=== PATIENT | male | born 1980 | race Caucasian/White ===

== ENCOUNTER 2024-05-28 09:03 | Outpatient (AMB) | payer MEDICARE, SELFPAY ==
--- NOTE | 2024-05-28 10:18 | PD.RESCLINIC ---
Allergies/Meds Allergies & Medications Allergies No Known Allergies Allergy (Verified 05/28/24 17:13) Medication Reconciliation flash glucose scanning reader (FreeStyle Zeyad 2 [place]) #1 ea 12/07/21 [Rx Confirmed 02/27/24] flash glucose sensor (FreeStyle Zeyad 2 Sensor kit) #1 ea 12/07/21 [Rx Confirmed 02/27/24] flash glucose sensor (FreeStyle Zeyad 2 Sensor kit) #1 ea 01/11/22 [Rx Confirmed 02/27/24] flash glucose sensor (FreeStyle Zeyad 14 Day Sensor kit) #6 ea 08/10/22 [Rx Confirmed 02/27/24] flash glucose sensor (FreeStyle Zeyad 2 Sensor kit) #1 ea 10/18/22 [Rx Confirmed 02/27/24] insulin glargine 100 unit/mL (3 mL) subcutaneous pen 25 unit (0.25 mL) subcut QDAY #15 mL 10/18/22 [Rx Confirmed 02/27/24] ondansetron 4 mg disintegrating tablet 4 mg PO Q8H #20 tabs 02/13/23 [Rx Confirmed 02/27/24] blood-glucose sensor (FreeStyle Zeyad 3 Sensor device) #2 ea 09/12/23 [Rx Confirmed 02/27/24] insulin degludec 100 unit/mL (3 mL) subcutaneous pen (Tresiba FlexTouch U-100 insulin) 25 unit (0.25 mL) subcut QDAY #15 mL 09/12/23 [Rx Confirmed 02/27/24] insulin glargine U-300 conc 300 unit/mL (3 mL) subcutaneous pen (Toujeo Max U-300 SoloStar) 22 unit (0.0733 mL) subcut QDAY #6 mL 10/31/23 [Rx Confirmed 02/27/24] pen needle, diabetic 31 gauge x 3/16 (Advocate Pen Needle) #100 ea 10/31/23 [Rx Confirmed 02/27/24] insulin lispro 100 unit/mL subcutaneous solution (Humalog U-100 Insulin) 1 sliding scale dose subcut USEASDIRECTD DM #9 vials 02/27/24 [Rx] albuterol sulfate 90 mcg/actuation aerosol inhaler 2 puff inhalation Q6H PRN shortness of breath or wheezing #8.5 grams 05/28/24 [Rx Confirmed 05/28/24] mometasone-formoterol HFA 50 mcg-5 mcg/actuation aerosol inhaler (Dulera) 2 inh inhalation BID asthma #13 grams 05/28/24 [Rx Confirmed 05/28/24] MA Intake Visit Data Collection New Patient or Established: Established Patient (seen at [facility] within 3 years) Seen by Clinical Staff ONLY (RN/MA): No Pain Present Currently: No Pain Scale Used: Tamayo-Onofre/Numerical Inspector Tubes Required: No PCP or OBGYN visit in last 3 months: Yes Hx Now: No Do You Feel Safe at Home: Yes Authorities Contacted: N/A Smoking Status Smoking Status: Never smoker For Televisit only Telemed Video/Phone Visit: Yes Verbal consent obtained for Telemed visit?: Yes Verbal Consent witness name: terrance Telemed Video/Phone visit w/Clinical Staff: 21-30 min Immunization / Flu Flu Vaccine in the Last 12 Months: No Flu Vaccine Exclusion Criteria: No Exclusion Criteria Past Medical History Past Medical History NEUROLOGIC: Negative Neurological Disorders CARDIAC: Negative Cardiac Disorders, Congestive Heart Failure or Hypotension RESPIRATORY: Negative Chronic Obstructive Pulmonary Disease (COPD) GASTROINTESTINAL: Positive Gastrointestinal Disorders and Pancreatitis GENITOURINARY: Negative Genitourinary Disorders or Renal Disease MUSCULOSKELETAL: Positive Arthritis ENDOCRINE: Positive Endocrine Disorders; Negative Diabetes Mellitus Type 1 or Diabetes Mellitus Type 2 HEMATOLOGIC: Negative Blood Disorders OTHER HISTORY: Positive Chicken Pox, Measles and Mumps Surgical History SURGICAL: Negative Cardiac Surgery Social History SMOKING STATUS: Smoking status: Never smoker ALCOHOL: Alcohol Intake: Never HOUSING: Housing: House LIVES WITH: Lives With: Significant Other Patient Portal [employer] Social History Living Situation History Housing: House Tobacco History Smoking Status: Never smoker Alcohol History Alcohol Intake: Never Domestic Abuse History Do You Feel Safe at Home: Yes Review of Systems Report any current symptoms Only answer those that you have currently: Past Medical History Past Medical History Have you ever been diagnosed with any of the following: Cardiology Problems Congestive Heart Failure: No Hypotension: No Respiratory Problems Chronic Obstructive Pulmonary Disease (COPD): No Stomache/Intestinal Problems Pancreatitis: Yes Genital/Urinary Problems Renal Disease: No Musculoskeletal Problems Arthritis: Yes Endocrine Problems Diabetes Mellitus Type 1: No Diabetes Mellitus Type 2: No Other Problems Chicken Pox: Yes Measles: Yes Mumps: Yes History of Present Illness HPI Narrative 42 year old male with past medical history of eczema, IBS, HLD and DKA. DM management includes Tresiba 20 units QD, metformin 500 mg BID, lispro sliding scale for continued diabetic management.? 01/11/2022 Previous appointment had patient prescribed Lantus for Tresiba due to cost of Tresiba.? Patient has been adequately controlling blood sugars.? Per his freestyle zeyad 2 his glucose management has been approximately 157 average with 94% compliance in the ideal blood glucose range.? Discussed with patient he would continue to need to have simple carbohydrate and sugar snacks with him if episodes of hypoglycemia occur when working in hot weather.? Patient stated that he has had some diarrhea/loose stools while on metformin.? Discussed with patient that this would continue to resolve moving forward.? However, have fit and we can consider extended release metformin.? Patient was concerned also for an rash that he had on his lower back extending into his gluteal line.? Patient has history of eczema and patient stated that his triamcinolone cream at home was helping the rash until he ran out.? 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 Also discussed with patient that he would need to follow-up with podiatry annually now that he has the diagnosis of his diabetes for preventative maintenance and treatment.? Patient has also been able to gain approximately 3 to 4 kg since last appointment. Patient has done an?EXCELLENT?job of lifestyle change for treatment of his diabetes. 02/08/2022 Patient has been having lower blood sugar numbers that drop into the 50s and 60s during the day at work. Patient saw word processing supervisor who recommended he use compression stalkings. Patient had an accident w/ a nail gun that resulted in a 1.25 nail in his most distal phalanx of the left index finger. Continues to have diarrhea on regular metformin, discussed we would try ER. Discussed that patient would have lantus reduced to 25 daily, receive antifungal for gluteal rash, receive TDAP vaccine, receive prescription for metformin ER, receive prescription for Keflex 500 mg qid, refill of freestyle zeyad 2 sensors. 03/15/2022 Patient continues to have blood sugar lows when at work. He has been using snacks and high sugar content drinks to keep his blood sugar controlled. Discussed he can begin to reduce his Lantus by 1-2 units and see effect over several days to reduce the number of low sugar incidences. Patient presented with paperwork to sign for an insulin pump. Paperwork was signed and patient will make an additional appointment once he receives the pump. Ordered an a1c for outpatient labs. 05/16/2022 Patient's blood sugar continues to fluctuate at work. Patient has gained approximately 2.0-2.5 kg since last visit. Patient was working to get an insulin pump but due to insurance issues was not able to receive one. He has insurance for medications that started on 05/07/2022. Follow up A1C on 03/15/2022 was 6.0%. Patient would like a prescription for Tresiba as he stated his blood sugar control was more stable throughout the day, especially at work. Continues to have GI upset that waxes/wanes with metformin. 10/20/2022 Patient follow-up. Patient is now status post cardiac angiogram. No large vessel occlusions were seen, no most likely angina is related to microvascular changes. Patient continues to have chest pain during sexual intercourse, and throughout the day when working. Patient has learned to compromise by taking short intermittent breaks. Patient overall has been doing well since last visit. Patient continues to monitor his blood sugar daily for his freestyle libre2. Patient also has had associated nausea without vomiting. Discussed with patient we can treat conservatively or more aggressively with PPIs. Patient at this time wanted to treat conservatively and withhold PPIs. Does not improve we will consider PPI along with imaging. Patient has continued to be cardiac. Patient had labs ordered for CMP, CBC, lipid panel. 12/06/2022 Patient follow-up for recent lab work. CMP wnl, A1C 6.7%, and LDL 120. Patient with improvement of chest pain with activity. Patient able to follow up with Project Systems Engineer Yvette who recommended to continue current medical management per patient. Patient compliant with diet and exercise, currently using Freestyle Libre2. Upon inspection of [employer] imtiaz on patient's phone, he is at 0% of the time at <70 blood sugar, 57% at 70-130 blood sugar, and about 14% above 200 blood sugar. Patient did not endorse nausea, fever, chills, chest pain, headache or constipation. He did endorse diarrhea about 5 episodes of water stools daily. Patient with pmh of IBS. Discussed with patient about benefits of statin therapy in patient with DM and +40yo, however, decision was made to proceed with lifestyle/diet changes and initiate fish oil supplements. Patient willing to recheck his lipid panel in 2-3 months and rediscuss statin therapy at that time. 06/06/2023 Follow up for DM. Patient has been having difficulty with finances. Patient continues to see cardiology for follow up. Has had continued cough for the last several months that has caused some chest pain/discomfort. Has been having diffulcty with controlling blood sugar. Morning readings has been 140 to 180 and also above 300 some mornings. Has had a chronic cough for > 3 months that has caused exessive fatigue. Denies fevers but has had chills at night. 07/11/2023 Follow-up for DM. Patient continues to have minor chest pain on exertion. 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 Continues to have difficulty controlling blood sugar. Cough has improved since last visit with antibiotics. Requests refill of long and short acting insulin. Presented with paperwork for insulin pump. Discussed that we will fill out. Also discussed that we would refer him to endocrinology for continued management of insulin pump. 08/15/2023 Follow-up for DM. Patient was seen over telehealth visit. Patient continues to do well on diabetic medication. Patient was updated on the status of endocrinology referral which is currently pending. Patient mentions no other complaints at this time. Patient did request refill for long and short acting insulin. 09/12/2023 Follow up for DM. Hypoglycemic episodes at night. Resending documentation for insulin pump. Refill medications. Continues to have typical chest pain and takes daily aspirin. Has been maintaining weight with a slight increase since July 2023. Endocrinology referral pending. 10/31/2023 Follow up for DM. Does not currently have CGM as his cell phone is not working. Currently has insulin pump. Filled out paperwork for omnipod. Requested refills. Continues to maintain weight. 02/27/2024 Follow up for DM. Currently on insulin pump. BG well managed with current pump. We ordered new 90 day refills through [facility]. Patient also complaining of dry cough and sob, sometimes wheezing. He has a hx of asthma, currently not taking meds. We ordered inhalers as below. Patient interested in following through with OMNIPOD device. Process was started by Dr. Lopez. We've submited a new form through [employer]. Telehealth Annual and f/u DM. Using insulin pump. Attempt for OMNIPODS was rejected by insurance. Glucose reading have been within range. Has been unable to pepper picker his asthma inhalers (we switched pharmacy to [facility]), complaining of daily cough that worsening over the last month or so. Now has productive martinez-green sputum, no fever, no chills, no hemoptesis. 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 Will see patient in 1-2 weeks after her completes labs. Review of Systems Review of Systems Narrative Review of Systems: GENERAL: Denies fevers/chills or diaphoresis. HEENT: Denies headache or visual/hearing changes. Denies nasal discharge. NEURO: Denies unusual weakness or difficulty speaking. CARDIO: Denies chest pain or palpitations. PULM: Denies SOB, coughing, or wheezing. GI: Denies abdominal pain, N/V/C/D/reflux/gas, bright red blood per rectum or melena. Reports having BMs. URO: Denies burning/itching/pain/urinary changes. MSK/EXT/SKIN: Denies joint/skeletal/muscle pain, issues/changes in upper or lower extremities, itchiness, or superficial pain. PSYCH: Cooperative, pleasant mood & affect. The rest of the review of systems is otherwise negative. Assessment & Plan Diagnosis / Problem List (1) Encounter for annual general medical examination with abnormal findings in adult: Status: Acute Assessment & Plan: Planing of productive cough x 1 month with dark martinez/green sputum. No fever or chills. No chest pain or shortness of breath. 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 Used to smoke cigarettes but quit several years ago. Ordered labs and imagings as below. Follow-up in person in 2-3 weeks. Ordered age-appropriate screening tools as below. Ordered annual labs as below Plan: ? Follow-up chest x-ray ? Follow-up labs: CBC, CMP, TSH, A1c, lipid panel, PSA ? Referral to GI for colonoscopy ? Return to office if symptoms persist, worsen or new symptoms develop. ? Follow-up in 2-3 weeks or PRN ? Will revisit vaccines during next visit. (2) Asthma: Status: Acute Qualifiers: Asthma complication type: uncomplicated Asthma persistence: persistent Asthma severity: mild Qualified Code(s): J45.30 - Mild persistent asthma, uncomplicated Assessment & Plan: Was unable to pepper picker his inhaler last time. Complaining of dry cough and wheezing almost on a daily basis. Will refill inhalers. Chest x-ray and labs as above. Plan: ? Refilled ALBUTEROL inhaler. ? Refilled DULERA inhaler. (3) Insulin dependent diabetes mellitus: Status: Acute Assessment & Plan: On INSULIN PUMP. Reports glucose have been in normal range. No reported signs or symptoms of diabetic complications. Plan: ? Ordered INSULIN refills: [facility] [facility] order # [id number] ? Recommended annual eye exam ? Follow-up ordered A1C ? Needs inpatient microfilament test in person Orders: Orders Ambulatory Hemoglobin A1C Today Alfredo Medina MD E13.9 - Other specified diabetes mellitus without complications Bedside Glucose (finger stick) Today Alfredo Medina MD E13.9 - Other specified diabetes mellitus without complications CBC Today Alfredo Medina MD E13.9 - Other specified diabetes mellitus without complications, J45.909 - Unspecified asthma, uncomplicated, R05.3 - Chronic cough Lipid Panel Today Alfredo Medina MD Z00.00 - Encounter for general adult medical examination without abnormal findings Prostate Specific Antigen Today Alfredo Medina MD Z12.5 - Encounter for screening for malignant neoplasm of prostate Comprehensive Metabolic Panel Today Alfredo Medina MD Z00.00 - Encounter for general adult medical examination without abnormal findings XR chest 2V Today Alfredo Medina MD J45.909 - Unspecified asthma, uncomplicated, R05.3 - Chronic cough Cocci Serology, Previous Pos* Today Alfredo Medina MD J45.909 - Unspecified asthma, uncomplicated, R05.3 - Chronic cough Thyroid Stimulating Hormone Today Alfredo Medina MD Z00.00 - Encounter for general adult medical examination without abnormal findings Free T4 (Free Thyroxine) Today Alfredo Medina MD Z00.00 - Encounter for general adult medical examination without abnormal findings Referrals Gastroenterology Alfredo Medina MD Z12.11 - Encounter for screening for malignant neoplasm of colon Office Procedures [facility] Level of Care Nursing/Assessment Patient Status: Established Patient Nursing Assessment/Reassessment: Medication Reconciliation and Update PMH in EMR Coordination of Care: Complex Care and Chronic Disease 1-5, Consent,records obtained, informed consent, Education Simp Pt/Fam, Lab and Imaging orders and Staff clarify orders Established Patient Charge Established Patient Point Assignment: 85 Telehealth Telemed Phone/Video with patient at home & Dr,PA,FINANCIAL ANALYSIS CONSULTANT: Yes
== END 2024-05-28 10:51 | disposition home or self-care (01) ==
LOC: HODAHC 09:03
PROVIDERS: Supervising Provider Internal Medicine
DX: J45.30 Mild persistent asthma, uncomplicated (principal); E11.9 Type 2 diabetes mellitus without complications; Z79.4 Long term (current) use of insulin
CPT/HCPCS: 99212; G0463

== ENCOUNTER → 2024-05-29 | Outpatient (CLI) | payer MEDICARE, SELFPAY ==
[2024-05-29 13:18] LABS: Coccid Serology, CF (UCD)* See Sep Rpt
--- NOTE | 2024-05-29 13:40 | XR_ITS ---
Examination: PA lateral chest 2 views TECHNIQUE: Upright PA lateral chest 2 views Exam date and time: May 29, 2024 1439 hours Comparison December 05, 2021 INDICATIONS: Chronic coughing beginning 3 months ago. FINDINGS: Normal heart size Mild hyperexpansion No pneumonia or pulmonary edema Orthopedic screws overlie the right shoulder IMPRESSION: Mild hyperexpansion
[2024-05-29 14:16] LABS: Glucose Estimated Average 212 mg/dL (80-131)
[2024-05-29 14:17] LABS: Prostate Specific Antigen 0.33 ng/mL (0-4.00)
[2024-05-29 14:23] LABS: Alanine Aminotransferase 34 U/L (10-49); Albumin, Serum 4.4 gm/dL (3.5-5.0); Albumin/Globulin Ratio 2.3 (1.2-2.2); Alkaline Phosphatase 67 U/L (46-116); Anion Gap 7 (7-16); Aspartate Amino Transferase 20 U/L (0-34); BUN/Creatinine Ratio 24 Ratio (12-20); Bilirubin,Total 0.3 mg/dL (0.3-1.2); Blood Urea Nitrogen 22 mg/dL (9-23); Calcium 9.4 mg/dL (8.3-10.6); Calcium (Corrected) 9.4 mg/dL (8.5-10.1); Chloride 103 mMol/L (98-107); Cholesterol 166 mg/dL (132-200); Creatinine (Component) 0.9 mg/dL (0.6-1.3); Free T4 (Free Thyroxine) 1.13 ng/dL (0.89-1.76); Globulin 1.9 gm/dL (2.3-3.5); Glucose 264 mg/dL (74-106); HDL Cholesterol 41 mg/dL (40-60); LDL Cholesterol,Calculated 94 mg/dL (0-130); Osmolality,Calculated 284 (275-295); Potassium 4.3 mMol/L (3.4-5.1); Sodium 136 mMol/L (136-145); Thyroid Stimulating Hormone 1.15 uIU/mL (0.55-4.78); Total Protein 6.3 gm/dL (5.7-8.2); Triglycerides 154 mg/dL (30-150); eGFR > 60 See Note
== END | disposition home or self-care (01) ==
PROVIDERS: Visit Provider Radiology Diagnostic Radiology
DX: J98.4 Other disorders of lung (principal); Z00.00 Encounter for general adult medical examination without abnormal findings; J45.909 Unspecified asthma, uncomplicated; Z12.5 Encounter for screening for malignant neoplasm of prostate; E13.9 Other specified diabetes mellitus without complications
CPT/HCPCS: 36415; 71046; 80053; 80061; 83036; 84153; 84439; 84443; 86171

== ENCOUNTER 2024-06-11 10:06 | Outpatient (AMB) | payer MEDICARE, SELFPAY ==
[2024-06-11 10:13] VITALS: BP 96/65; PULSE 81; RESP 16; TEMP 36.3; O2SAT 97; BMI 26.2
--- NOTE | 2024-06-11 10:13 | ACNOTE_ITS ---
Vital Signs 06/11/24 10:13 Height 1.83 m Height Method Stated Weight 87.997 kg Weight Measurement Method Standing Scale BMI 26.2 BP 96/65 Blood Pressure Source Automatic Cuff Blood Pressure Location Left Upper Arm Position Sitting Respiration 16 Pulse 81 Pulse Source Monitor Temp 97.3 F Temp Source Oral Pulse Oximetry (%) 97 Oxygen Delivery Method Room Air Allergies/Meds Allergies & Medications Allergies No Known Allergies Allergy (Verified 05/28/24 17:13) Medication Reconciliation flash glucose scanning reader (FreeStyle Zoya 2 [place]) #1 ea 12/07/21 [Rx Confirmed 02/27/24] flash glucose sensor (FreeStyle Zoya 2 Sensor kit) #1 ea 12/07/21 [Rx Confirmed 02/27/24] flash glucose sensor (FreeStyle Zoya 2 Sensor kit) #1 ea 01/11/22 [Rx Confirmed 02/27/24] flash glucose sensor (FreeStyle Zoya 14 Day Sensor kit) #6 ea 08/10/22 [Rx Confirmed 02/27/24] flash glucose sensor (FreeStyle Zoya 2 Sensor kit) #1 ea 10/18/22 [Rx Confirmed 02/27/24] insulin glargine 100 unit/mL (3 mL) subcutaneous pen 25 unit (0.25 mL) subcut QDAY #15 mL 10/18/22 [Rx Confirmed 02/27/24] ondansetron 4 mg disintegrating tablet 4 mg PO Q8H #20 tabs 02/13/23 [Rx Confirmed 02/27/24] blood-glucose sensor (FreeStyle Zoya 3 Sensor device) #2 ea 09/12/23 [Rx Confirmed 02/27/24] insulin degludec 100 unit/mL (3 mL) subcutaneous pen (Tresiba FlexTouch U-100 insulin) 25 unit (0.25 mL) subcut QDAY #15 mL 09/12/23 [Rx Confirmed 02/27/24] insulin glargine U-300 conc 300 unit/mL (3 mL) subcutaneous pen (Toujeo Max U- 300 SoloStar) 22 unit (0.0733 mL) subcut QDAY #6 mL 10/31/23 [Rx Confirmed 02/27/24] pen needle, diabetic 31 gauge x 3/16 (Advocate Pen Needle) #100 ea 10/31/23 [Rx Confirmed 02/27/24] albuterol sulfate 90 mcg/actuation aerosol inhaler 2 puff inhalation Q6H PRN shortness of breath or wheezing #8.5 grams 05/28/24 [Rx Confirmed 05/28/24] fluticasone propionate 115 mcg-salmeterol 21 mcg/actuation HFA inhaler (Advair HFA) 2 puff inhalation BID 30 days #12 grams 05/30/24 [Rx] azithromycin 500 mg tablet See Rx Instructions PO .COMPLEX #3 tabs 06/11/24 [Rx Confirmed 06/16/24] fluticasone 250 mcg-salmeterol 50 mcg/dose blistr powdr for inhalation (Wixela Inhub) 1 inh inhalation BID #60 ea 06/11/24 [Rx Confirmed 06/16/24] insulin lispro 100 unit/mL subcutaneous solution (Humalog U-100 Insulin) 1 sliding scale dose subcut USEASDIRECTD DM #9 vials 06/11/24 [Rx Confirmed 06/16/24] MA Intake Visit Data Collection New Patient or Established: Established Patient (seen at [facility] within 3 years) Seen by Clinical Staff ONLY (RN/MA): No Pain Present Currently: No Pain scale:: 0 Pain Scale Used: Tamayo-Onofre/Numerical Associate Director Data [employer] Analytics Required: No PCP or OBGYN visit in last 3 months: Yes Hx Now: No Do You Feel Safe at Home: Yes Authorities Contacted: N/A Smoking Status Smoking Status: Never smoker Immunization / Flu Flu Vaccine in the Last 12 Months: No Flu Vaccine Exclusion Criteria: No Exclusion Criteria Past Medical History Past Medical History NEUROLOGIC: Negative Neurological Disorders CARDIAC: Negative Cardiac Disorders, Congestive Heart Failure or Hypotension RESPIRATORY: Negative Chronic Obstructive Pulmonary Disease (COPD) GASTROINTESTINAL: Positive Gastrointestinal Disorders and Pancreatitis GENITOURINARY: Negative Genitourinary Disorders or Renal Disease MUSCULOSKELETAL: Positive Arthritis ENDOCRINE: Positive Endocrine Disorders; Negative Diabetes Mellitus Type 1 or Diabetes Mellitus Type 2 HEMATOLOGIC: Negative Blood Disorders OTHER HISTORY: Positive Chicken Pox, Measles and Mumps Surgical History SURGICAL: Negative Cardiac Surgery Social History SMOKING STATUS: Smoking status: Never smoker ALCOHOL: Alcohol Intake: Never HOUSING: Housing: House LIVES WITH: Lives With: Significant Other Patient Portal Questionaires Social History Living Situation History Housing: House Tobacco History Smoking Status: Never smoker Alcohol History Alcohol Intake: Never Domestic Abuse History Do You Feel Safe at Home: Yes Review of Systems Report any current symptoms Only answer those that you have currently: Past Medical History Past Medical History Have you ever been diagnosed with any of the following: Cardiology Problems Congestive Heart Failure: No Hypotension: No Respiratory Problems Chronic Obstructive Pulmonary Disease (COPD): No Stomache/Intestinal Problems Pancreatitis: Yes Genital/Urinary Problems Renal Disease: No Musculoskeletal Problems Arthritis: Yes Endocrine Problems Diabetes Mellitus Type 1: No Diabetes Mellitus Type 2: No Other Problems Chicken Pox: Yes Measles: Yes Mumps: Yes History of Present Illness HPI Narrative 42 year old male with past medical history of eczema, IBS, HLD and DKA. DM management includes Tresiba 20 units QD, metformin 500 mg BID, lispro sliding scale for continued diabetic management.? 01/11/2022 Previous appointment had patient prescribed Lantus for Tresiba due to cost of Tresiba.? Patient has been adequately controlling blood sugars.? Per his freestyle zoya 2 his glucose management has been approximately 157 average with 94% compliance in the ideal blood glucose range.? Discussed with patient he would continue to need to have simple carbohydrate and sugar snacks with him if episodes of hypoglycemia occur when working in hot weather.? Patient stated that he has had some diarrhea/loose stools while on metformin.? Discussed with patient that this would continue to resolve moving forward.? However, have fit and we can consider extended release metformin.? Patient was concerned also for an rash that he had on his lower back extending into his gluteal line.? Patient has history of eczema and patient stated that his triamcinolone cream at home was helping the rash until he ran out.? Patient also wanted to be evaluated at training and development coordinator for multiple ingrown toenails.? Also discussed with patient that he would need to follow-up with podiatry annually now that he has the diagnosis of his diabetes for preventative maintenance and treatment.? Patient has also been able to gain approximately 3 to 4 kg since last appointment. Patient has done an?EXCELLENT?job of lifestyle change for treatment of his diabetes. 02/08/2022 Patient has been having lower blood sugar numbers that drop into the 50s and 60s during the day at work. Patient saw training and development coordinator who recommended he use compression stalkings. Patient had an accident w/ a nail gun that resulted in a 1.25 nail in his most distal phalanx of the left index finger. Continues to have diarrhea on regular metformin, discussed we would try ER. Discussed that patient would have lantus reduced to 25 daily, receive antifungal for gluteal rash, receive TDAP vaccine, receive prescription for metformin ER, receive prescription for Keflex 500 mg qid, refill of freestyle zoya 2 sensors. 03/15/2022 Patient continues to have blood sugar lows when at work. He has been using snacks and high sugar content drinks to keep his blood sugar controlled. Discussed he can begin to reduce his Lantus by 1-2 units and see effect over several days to reduce the number of low sugar incidences. Patient presented with paperwork to sign for an insulin pump. Paperwork was signed and patient will make an additional appointment once he receives the pump. Ordered an a1c for outpatient labs. 05/16/2022 Patient's blood sugar continues to fluctuate at work. Patient has gained approximately 2.0-2.5 kg since last visit. Patient was working to get an insulin pump but due to insurance issues was not able to receive one. He has insurance for medications that started on 05/07/2022. Follow up A1C on 03/15/2022 was 6.0%. Patient would like a prescription for Tresiba as he stated his blood sugar control was more stable throughout the day, especially at work. Continues to have GI upset that waxes/wanes with metformin. 10/20/2022 Patient follow-up. Patient is now status post cardiac angiogram. No large vessel occlusions were seen, no most likely angina is related to microvascular changes. Patient continues to have chest pain during sexual intercourse, and throughout the day when working. Patient has learned to compromise by taking short intermittent breaks. Patient overall has been doing well since last visit. Patient continues to monitor his blood sugar daily for his freestyle libre2. Patient also has had associated nausea without vomiting. Discussed with patient we can treat conservatively or more aggressively with PPIs. Patient at this time wanted to treat conservatively and withhold PPIs. Does not improve we will consider PPI along with imaging. Patient has continued to be cardiac. Patient had labs ordered for CMP, CBC, lipid panel. 12/06/2022 Patient follow-up for recent lab work. CMP wnl, A1C 6.7%, and LDL 120. Patient with improvement of chest pain with activity. Patient able to follow up with Body Wirer Yvette who recommended to continue current medical management per patient. Patient compliant with diet and exercise, currently using Freestyle Libre2. Upon inspection of Whatseryle imtiaz on patient's phone, he is at 0% of the time at <70 blood sugar, 57% at 70-130 blood sugar, and about 14% above 200 blood sugar. Patient did not endorse nausea, fever, chills, chest pain, headache or constipation. He did endorse diarrhea about 5 episodes of water stools daily. Patient with pmh of IBS. Discussed with patient about benefits of statin therapy in patient with DM and +40yo, however, decision was made to proceed with lifestyle/diet changes and initiate fish oil supplements. Patient willing to recheck his lipid panel in 2-3 months and rediscuss statin therapy at that time. 06/06/2023 Follow up for DM. Patient has been having difficulty with finances. Patient continues to see cardiology for follow up. Has had continued cough for the last several months that has caused some chest pain/discomfort. Has been having diffulcty with controlling blood sugar. Morning readings has been 140 to 180 and also above 300 some mornings. Has had a chronic cough for > 3 months that has caused exessive fatigue. Denies fevers but has had chills at night. 07/11/2023 Follow-up for DM. Patient continues to have minor chest pain on exertion. 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 Continues to have difficulty controlling blood sugar. Cough has improved since last visit with antibiotics. Requests refill of long and short acting insulin. Presented with paperwork for insulin pump. Discussed that we will fill out. Also discussed that we would refer him to endocrinology for continued management of insulin pump. 08/15/2023 Follow-up for DM. Patient was seen over telehealth visit. Patient continues to do well on diabetic medication. Patient was updated on the status of endocrinology referral which is currently pending. Patient mentions no other complaints at this time. Patient did request refill for long and short acting insulin. 09/12/2023 Follow up for DM. Hypoglycemic episodes at night. Resending documentation for insulin pump. Refill medications. Continues to have typical chest pain and takes daily aspirin. Has been maintaining weight with a slight increase since July 2023. Endocrinology referral pending. 10/31/2023 Follow up for DM. Does not currently have CGM as his cell phone is not working. Currently has insulin pump. Filled out paperwork for omnipod. Requested refills. Continues to maintain weight. 02/27/2024 Follow up for DM. Currently on insulin pump. BG well managed with current pump. We ordered new 90 day refills through [facility]. Patient also complaining of dry cough and sob, sometimes wheezing. He has a hx of asthma, currently not taking meds. We ordered inhalers as below. Patient interested in following through with O MNIPOD device. Process was started by Dr. Lopez. We've submited a new form through [employer]. Telehealth Annual and f/u DM. Using insulin pump. Attempt for OMNIPODS was rejected by insurance. Glucose reading have been within range. Has been unable to belt picker his asthma inhalers (we switched pharmacy to [facility]), complaining of daily cough that worsening over the last month or so. Now has productive martinez-green sputum, no fever, no chills, no hemoptesis. 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 Will see patient in 1-2 weeks after her completes labs. 06/11/2024?an office visit Patient seen in the office for follow-up from previous labs. A1c higher than p reviously documented now 9.0 with average glucose measuring around 212. Patient informs me that he uses long-acting insulin glargine 25 units and sliding scale insulin based on carb counting with episodes of hypoglycemia noted in the morning. He states that he wakes up high and without the use of any corrective insulin his blood sugar drops requiring him to use significant amounts of sugar based beverages and snacks to bring it back to normal. Patient states that he has had increased carbohydrate intake because he is attempting to gain weight due to his thin weight on his tall frame. Patient also states that he is having significant shortness of breath and fatigue [place] He also endorses cough with sputum production that is mostly clear and states that this is a chronic issue for him. He endorses using his rescue inhaler without significant improvement and states that his previously prescribed Advair was too expensive so he is requesting a generic medication. Patient previously did have coronary angiogram around 2 years prior that was noted to be clean. Objective/Exam Narrative Physical exam: GENERAL: Alert and oriented x 3. No acute distress. Tall and thin EYES: EOMI. Anicteric. HEENT: Moist mucous membranes. No scleral icterus. No cervical lymphadenopathy. LUNGS: Minimal air movement with mild wheeze heard on expiration, significant cough upon expiration CARDIOVASCULAR: Regular rate and rhythm. No murmur. No JVD. ABDOMEN: Soft, non-tender and non-distended. No palpable masses. EXTREMITIES: All 4 extremeties intact. No edema. Nontender. SKIN: No rashes or lesions. Warm. NEUROLOGIC: No focal neurological deficits. CN II-XII grossly intact, but not individually tested. PSYCHIATRIC: Cooperative. Appropriate mood and affect. Assessment & Plan Diagnosis / Problem List (1) COPD (chronic obstructive pulmonary disease): Status: Acute Assessment & Plan: Patient does not previously have diagnosed history of COPD Both x-rays appear to have hyperinflated lungs Patient has longstanding history of living in [place] with prolonged periods of commute and high volumes of traffic Denies any previous history of smoking Cannot assess COPD Gold score due to unknown FEV1/FVC ratio COPD assessment test score of 18 Medium health impact with recommendation for LAMA/LABA and rescue inhaler Plan: Continue with rescue inhaler albuterol Will send for Wixela to assist in shortness of breath Will refer to pulmonology to undergo pulmonary function test Will send azithromycin blister pack for symptomatic management (2) Diabetes 1.5, managed as type 1: Status: Acute Assessment & Plan: Patient has longstanding history of type 1 diabetes treated with insulin pump Uses around 25 units of long-acting Sliding scale use for corrective insulin with measurement of carbs Patient is having episodes of hypoglycemia even though he is waking up with hyperglycemia with blood sugars above 200 A1c increased from 7.9-9.0 Plan: Recommended to hold corrective insulin following nighttime snack Continue with long-acting insulin Will refer to endocrinology Refilled patient's short acting insulin (3) Asthma: Status: Acute Qualifiers: Asthma complication type: uncomplicated Asthma persistence: persistent Asthma severity: mild Qualified Code(s): J45.30 - Mild persistent asthma, uncomplicated Assessment & Plan: Patient previously prescribed albuterol Denied Advair prescription due to high cost Plan: Continue with albuterol rescue inhaler Will add Wixela which is generic for Advair Will refer to pulmonology for PFTs (4) Chronic cough: Status: Acute Assessment & Plan: Has chronic cough with sputum production along with shortness of breath Chest x-ray appears to show hyperinflated lungs Plan: Will send the patient with azithromycin blister pack for management of cough with sputum production Will refer to pulmonology for PFTs Consider ordering BNP's if patient experiences further shortness of breath on exertion Previous coronary angiogram negative according to the patient Orders: Referrals Pulmonology Endocrinology Additional Assessment Internal Medicine Attending Note: Case discussed with and agree with note and management plan of Resident Physician as per Resident's Note above. Issues of concern for present visit are as follows: Follow-up visit. Hemoglobin A1c increased. Patient noting some fluctuations in glucose including hypoglycemia requiring sugar based beverages and snacks to raise his glucose. He has been eating more carbs as he attempts to gain weight due to being thin. Diet, exercise, footcare, eye care reviewed. Patient noting some dyspnea on exertion. History of stable angina with prior cardiac catheterization revealing microvascular disease not amenable to intervention. Given the fluctuations that he is having with his glucose, we will make a referral today to endocrinology. Continue with basal bolus regimen but may need to hold some bolus insulin at times given episodes of hypoglycemia. Diet counseling given. Given patient's continuing dyspnea, we will refer to pulmonology for complete pulmonary function testing. Will prescribe a different long-acting beta agonist/inhaled corticosteroid then prescribed previously as patient was not able to obtain due to cost. Rocky Ríos MD Physician Billing Established Patient Established Patient: E/M Level 3-CPT 18748 Office Procedures [facility] Level of Care Nursing/Assessment Patient Status: Established Patient Nursing Assessment/Reassessment: Medication Reconciliation, Update PMH in EMR and Vital Signs Coordination of Care: Complex Care and Chronic Disease 1-5, Consent,records obtained, informed consent, Education Simp Pt/Fam, Lab and Imaging orders, Ref for ancillary service and Staff clarify orders Established Patient Charge Established Patient Point Assignment: 120 Established Patient Point Charge: EP Level 4 (120-155)
== END 2024-06-11 10:44 | disposition home or self-care (01) ==
LOC: HODAHC 10:06
PROVIDERS: Supervising Provider Internal Medicine
DX: E10.9 Type 1 diabetes mellitus without complications (principal); Z79.4 Long term (current) use of insulin; J44.9 Chronic obstructive pulmonary disease, unspecified
CPT/HCPCS: 99214; G0463

== ENCOUNTER 2024-08-20 09:14 | Outpatient (AMB) | payer MEDICARE, SELFPAY ==
[2024-08-20 09:23] VITALS: BP 101/66; PULSE 85; RESP 18; TEMP 36.6; O2SAT 98; BMI 24.8
--- NOTE | 2024-08-20 09:23 | PD.RESCLINIC ---
Vital Signs 08/20/24 09:23 Height 1.83 m Height Method Stated Weight 83.121 kg Weight Measurement Method Standing Scale BMI 24.8 BP 101/66 Blood Pressure Source Automatic Cuff Blood Pressure Location Left Upper Arm Position Sitting Respiration 18 Pulse 85 Pulse Source Monitor Temp 97.8 F Temp Source Temporal Artery Scan Pulse Oximetry (%) 98 Oxygen Delivery Method Room Air Allergies/Meds Allergies & Medications Allergies No Known Allergies Allergy (Verified 08/20/24 09:24) Medication Reconciliation insulin glargine 100 unit/mL (3 mL) subcutaneous pen 25 unit (0.25 mL) subcut QDAY #15 mL 10/18/22 [Rx Confirmed 08/20/24] insulin glargine U-300 conc 300 unit/mL (3 mL) subcutaneous pen (Toujeo Max U-300 SoloStar) 22 unit (0.0733 mL) subcut QDAY #6 mL 10/31/23 [Rx Confirmed 08/20/24] pen needle, diabetic 31 gauge x 3/16 (Advocate Pen Needle) #100 ea 10/31/23 [Rx Confirmed 08/20/24] fluticasone propionate 115 mcg-salmeterol 21 mcg/actuation HFA inhaler (Advair HFA) 2 puff inhalation BID 30 days #12 grams 05/30/24 [Rx Confirmed 08/20/24] azithromycin 500 mg tablet See Rx Instructions PO .COMPLEX #3 tabs 06/11/24 [Rx Confirmed 08/20/24] insulin lispro 100 unit/mL subcutaneous solution (Humalog U-100 Insulin) 1 sliding scale dose subcut USEASDIRECTD DM #9 vials 06/11/24 [Rx Confirmed 08/20/24] Admelog SoloStar U-100 Insulin 100 unit/mL subcutaneous pen (insulin lispro) See Rx Instructions subcut TID PRN hyperglycemia #15 mL 08/20/24 [Rx] albuterol sulfate 90 mcg/actuation aerosol inhaler 2 puff inhalation Q6H PRN shortness of breath or wheezing #8.5 grams 08/20/24 [Rx] blood-glucose sensor (FreeStyle Zoya 2 Plus Sensor device) #1 ea 08/20/24 [Rx] empagliflozin 10 mg tablet (Jardiance) 10 mg PO QDAY #30 tabs 08/20/24 [Rx] fluticasone 250 mcg-salmeterol 50 mcg/dose blistr powdr for inhalation (Wixela Inhub) 1 inh inhalation BID #60 ea 08/20/24 [Rx] infusion set for insulin pump (TruSteel Infusion Set 23 ) #10 ea 08/20/24 [Rx] lisinopril 5 mg tablet 5 mg PO QDAY #30 tabs 08/20/24 [Rx] MA Intake Visit Data Collection New Patient or Established: Established Patient (seen at [facility] within 3 years) Seen by Clinical Staff ONLY (RN/MA): No Pain Present Currently: No Pain scale:: 0 Pain Scale Used: Tamayo-Onofre/Numerical Rodeo Clown Required: No PCP or OBGYN visit in last 3 months: No Hx Now: No Do You Feel Safe at Home: Yes Authorities Contacted: N/A Smoking Status Smoking Status: Never smoker Immunization / Flu Flu Vaccine in the Last 12 Months: No Flu Vaccine Exclusion Criteria: No Exclusion Criteria Past Medical History Past Medical History NEUROLOGIC: Negative Neurological Disorders CARDIAC: Negative Cardiac Disorders, Congestive Heart Failure or Hypotension RESPIRATORY: Negative Chronic Obstructive Pulmonary Disease (COPD) GASTROINTESTINAL: Positive Gastrointestinal Disorders and Pancreatitis GENITOURINARY: Negative Genitourinary Disorders or Renal Disease MUSCULOSKELETAL: Positive Arthritis ENDOCRINE: Positive Endocrine Disorders; Negative Diabetes Mellitus Type 1 or Diabetes Mellitus Type 2 HEMATOLOGIC: Negative Blood Disorders OTHER HISTORY: Positive Chicken Pox, Measles and Mumps Surgical History SURGICAL: Negative Cardiac Surgery Social History SMOKING STATUS: Smoking status: Never smoker ALCOHOL: Alcohol Intake: Never HOUSING: Housing: House LIVES WITH: Lives With: Significant Other Patient Portal Questionaires Social History Living Situation History Housing: House Tobacco History Smoking Status: Never smoker Alcohol History Alcohol Intake: Never Domestic Abuse History Do You Feel Safe at Home: Yes Review of Systems Report any current symptoms Only answer those that you have currently: Past Medical History Past Medical History Have you ever been diagnosed with any of the following: Cardiology Problems Congestive Heart Failure: No Hypotension: No Respiratory Problems Chronic Obstructive Pulmonary Disease (COPD): No Stomache/Intestinal Problems Pancreatitis: Yes Genital/Urinary Problems Renal Disease: No Musculoskeletal Problems Arthritis: Yes Endocrine Problems Diabetes Mellitus Type 1: No Diabetes Mellitus Type 2: No Other Problems Chicken Pox: Yes Measles: Yes Mumps: Yes History of Present Illness HPI Narrative 42 year old male with past medical history of eczema, IBS, HLD and DKA. DM management includes Tresiba 20 units QD, metformin 500 mg BID, lispro sliding scale for continued diabetic management.? 01/11/2022 Previous appointment had patient prescribed Lantus for Tresiba due to cost of Tresiba.? Patient has been adequately controlling blood sugars.? Per his freestyle zoya 2 his glucose management has been approximately 157 average with 94% compliance in the ideal blood glucose range.? Discussed with patient he would continue to need to have simple carbohydrate and sugar snacks with him if episodes of hypoglycemia occur when working in hot weather.? Patient stated that he has had some diarrhea/loose stools while on metformin.? Discussed with patient that this would continue to resolve moving forward.? However, have fit and we can consider extended release metformin.? Patient was concerned also for an rash that he had on his lower back extending into his gluteal line.? Patient has history of eczema and patient stated that his triamcinolone cream at home was helping the rash until he ran out.? Patient also wanted to be evaluated at [employer] for multiple ingrown toenails.? Also discussed with patient that he would need to follow-up with podiatry annually now that he has the diagnosis of his diabetes for preventative maintenance and treatment.? Patient has also been able to gain approximately 3 to 4 kg since last appointment. Patient has done an?EXCELLENT?job of lifestyle change for treatment of his diabetes. 02/08/2022 Patient has been having lower blood sugar numbers that drop into the 50s and 60s during the day at work. Patient saw [employer] line core layer who recommended he use compression stalkings. Patient had an accident w/ a nail gun that resulted in a 1.25 nail in his most distal phalanx of the left index finger. Continues to have diarrhea on regular metformin, discussed we would try ER. Discussed that patient would have lantus reduced to 25 daily, receive antifungal for gluteal rash, receive TDAP vaccine, receive prescription for metformin ER, receive prescription for Keflex 500 mg qid, refill of freestyle zoya 2 sensors. 03/15/2022 Patient continues to have blood sugar lows when at work. He has been using snacks and high sugar content drinks to keep his blood sugar controlled. Discussed he can begin to reduce his Lantus by 1-2 units and see effect over several days to reduce the number of low sugar incidences. Patient presented with paperwork to sign for an insulin pump. Paperwork was signed and patient will make an additional appointment once he receives the pump. Ordered an a1c for outpatient labs. 05/16/2022 Patient's blood sugar continues to fluctuate at work. Patient has gained approximately 2.0-2.5 kg since last visit. Patient was working to get an insulin pump but due to insurance issues was not able to receive one. He has insurance for medications that started on 05/07/2022. Follow up A1C on 03/15/2022 was 6.0%. Patient would like a prescription for Tresiba as he stated his blood sugar control was more stable throughout the day, especially at work. Continues to have GI upset that waxes/wanes with metformin. 10/20/2022 Patient follow-up. Patient is now status post cardiac angiogram. No large vessel occlusions were seen, no most likely angina is related to microvascular changes. Patient continues to have chest pain during sexual intercourse, and throughout the day when working. Patient has learned to compromise by taking short intermittent breaks. Patient overall has been doing well since last visit. Patient continues to monitor his blood sugar daily for his freestyle libre2. Patient also has had associated nausea without vomiting. Discussed with patient we can treat conservatively or more aggressively with PPIs. Patient at this time wanted to treat conservatively and withhold PPIs. Does not improve we will consider PPI along with imaging. Patient has continued to be cardiac. Patient had labs ordered for CMP, CBC, lipid panel. 12/06/2022 Patient follow-up for recent lab work. CMP wnl, A1C 6.7%, and LDL 120. Patient with improvement of chest pain with activity. 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 Patient compliant with diet and exercise, currently using Freestyle Libre2. Upon inspection of Freestyle imtiaz on patient's phone, he is at 0% of the time at <70 blood sugar, 57% at 70-130 blood sugar, and about 14% above 200 blood sugar. Patient did not endorse nausea, fever, chills, chest pain, headache or constipation. He did endorse diarrhea about 5 episodes of water stools daily. Patient with pmh of IBS. Discussed with patient about benefits of statin therapy in patient with DM and +40yo, however, decision was made to proceed with lifestyle/diet changes and initiate fish oil supplements. Patient willing to recheck his lipid panel in 2-3 months and rediscuss statin therapy at that time. 06/06/2023 Follow up for DM. Patient has been having difficulty with finances. Patient continues to see cardiology for follow up. Has had continued cough for the last several months that has caused some chest pain/discomfort. Has been having diffulcty with controlling blood sugar. Morning readings has been 140 to 180 and also above 300 some mornings. Has had a chronic cough for > 3 months that has caused exessive fatigue. Denies fevers but has had chills at night. 07/11/2023 Follow-up for DM. Patient continues to have minor chest pain on exertion. 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 Continues to have difficulty controlling blood sugar. Cough has improved since last visit with antibiotics. Requests refill of long and short acting insulin. Presented with paperwork for insulin pump. Discussed that we will fill out. Also discussed that we would refer him to endocrinology for continued management of insulin pump. 08/15/2023 Follow-up for DM. Patient was seen over telehealth visit. Patient continues to do well on diabetic medication. Patient was updated on the status of endocrinology referral which is currently pending. Patient mentions no other complaints at this time. Patient did request refill for long and short acting insulin. 09/12/2023 Follow up for DM. Hypoglycemic episodes at night. Resending documentation for insulin pump. Refill medications. Continues to have typical chest pain and takes daily aspirin. Has been maintaining weight with a slight increase since July 2023. Endocrinology referral pending. 10/31/2023 Follow up for DM. Does not currently have CGM as his cell phone is not working. Currently has insulin pump. Filled out paperwork for omnipod. Requested refills. Continues to maintain weight. 02/27/2024 Follow up for DM. Currently on insulin pump. BG well managed with current pump. We ordered new 90 day refills through [facility]. Patient also complaining of dry cough and sob, sometimes wheezing. He has a hx of asthma, currently not taking meds. We ordered inhalers as below. Patient interested in following through with OMNIPOD device. Process was started by Dr. Lopez. We've submited a new form through [employer]. Telehealth Annual and f/u DM. Using insulin pump. Attempt for OMNIPODS was rejected by insurance. Glucose reading have been within range. Has been unable to spanish moss picker his asthma inhalers (we switched pharmacy to [facility]), complaining of daily cough that worsening over the last month or so. Now has productive martinez-green sputum, no fever, no chills, no hemoptesis. 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 Will see patient in 1-2 weeks after her completes labs. 06/11/2024?an office visit Patient seen in the office for follow-up from previous labs. A1c higher than previously documented now 9.0 with average glucose measuring around 212. Patient informs me that he uses long-acting insulin glargine 25 units and sliding scale insulin based on carb counting with episodes of hypoglycemia noted in the morning. He states that he wakes up high and without the use of any corrective insulin his blood sugar drops requiring him to use significant amounts of sugar based beverages and snacks to bring it back to normal. Patient states that he has had increased carbohydrate intake because he is attempting to gain weight due to his thin weight on his tall frame. Patient also states that he is having significant shortness of breath and fatigue [place] He also endorses cough with sputum production that is mostly clear and states that this is a chronic issue for him. He endorses using his rescue inhaler without significant improvement and states that his previously prescribed Advair was too expensive so he is requesting a generic medication. Patient previously did have coronary angiogram around 2 years prior that was noted to be clean. 08/20/2024 In office visit Here for medication refill. He is having difficulty managing his BS with the insulin pump, reports recurrent spikes of sugars during, has an appt with ENDO coming up. Reports 3 months of bilatral flank pain and frothy urine as well as dysuria as well as RUQ pain worse with eating. Asthma controlled with current meds. Denies fever, chills, chest pain, worsening sob, hematuria, n/v/d/c. Objective/Exam Narrative Physical exam: GENERAL Normal appearing adult male, NAD HEENT NCAT.?SILKE. Oral mucosa is moist. Patent Nares NECK Supple, nontender, no thyromegaly, no meningismus, no JVD, no step offs CHEST RRR, no m/g/r CTAB, no w/r/r. Symmetrical chest rise. No intercostal subcostal retraction Atraumatic, nontender, no crepitus, symmetrical expansion. ABDOMEN Soft, flat, nontender. No guarding/rebound tenderness/masses. Bowel sounds presents EXTREMITIES No edema/cyanosis.? SKIN Warm and dry, no jaundice/rashes. NEUROMUSCULAR No lumbar or midline, no CVA, no paraspinal muscle spasm or tenderness. Moves all 4 extremities well, with full ROM and good CSM. LOPEZ x4, CN II-XII grossly intact. No focal neurologic deficits. PSYCHIATRY Normal mood and affect, cooperative, no SI or HI or hallucinations. Assessment & Plan Diagnosis / Problem List (1) Abdominal pain: Status: Acute Assessment & Plan: Reports dull bilateral flank pain. Reports RUQ pain worse with eating Denies n/c/d/v, abdnormal weight loss or gain Plan: Ordered CBC, CMP, Gallbladder US, Renal US. (2) Dysuria: Status: Acute Assessment & Plan: 3 months of frothy/foamy urine and dysuria. Denies fever, chills, nausea, vomiting. Plan: Ordered UA Ordered urine mAlb, creatinine, mACR Referral to nephrology given long-standing DM Pending fady renal US (3) Diabetes 1.5, managed as type 1: Status: Acute Assessment & Plan: Patient has longstanding history of type 1 diabetes treated with insulin pump Uses around 25 units of long-acting Sliding scale use for corrective insulin with measurement of carbs Patient is having episodes of hypoglycemia even though he is waking up with hyperglycemia with blood sugars above 200 A1c increased from 7.9-9.0 Reports recurrent hyperglycemia Plan: Refill insulin pump Ordered ADMALOG pen PRN 1-10 units Has appt with Endocrine coming up Started JARDIANCE and LISINOPRIL for renal protection (4) COPD (chronic obstructive pulmonary disease): Status: Acute Assessment & Plan: Patient does not previously have diagnosed history of COPD Both x-rays appear to have hyperinflated lungs Patient has longstanding history of living in [place] with prolonged periods of commute and high volumes of traffic Denies any previous history of smoking Cannot assess COPD Gold score due to unknown FEV1/FVC ratio COPD assessment test score of 18 Medium health impact with recommendation for LAMA/LABA and rescue inhaler Plan: Continue with rescue inhaler albuterol Refill Wixela to assist in shortness of breath Pending pulmonology to undergo pulmonary function test (5) Proteinuria: Status: Acute Assessment & Plan: As above Orders: Orders US gall bladder 08/20/24 Alfredo Medina MD R10.9 - Unspecified abdominal pain Microalbumin, Ur Rnd w Creat 08/20/24 Alfredo Medina MD R80.9 - Proteinuria, unspecified Creatinine,Random Urine 08/20/24 Alfredo Medina MD R80.9 - Proteinuria, unspecified Protein Total, Random Urine 08/20/24 Alfredo Medina MD R80.9 - Proteinuria, unspecified Ambulatory Hemoglobin A1C 08/20/24 Alfredo Medina MD Comprehensive Metabolic Panel 08/20/24 Alfredo Medina MD R10.9 - Unspecified abdominal pain Lipase 08/20/24 Alfredo Medina MD R10.9 - Unspecified abdominal pain CBC 08/20/24 Alfredo Medina MD Urinalysis 08/20/24 Alfredo Medina MD R30.0 - Dysuria Referrals Pulmonology Alfredo Medina MD J44.9 - Chronic obstructive pulmonary disease, unspecified Additional Assessment Internal Medicine Attending Note: Case discussed with and agree with note and management plan of Resident Physician as per Resident's Note above. Issues of concern for present visit are as follows: Follow-up visit. Diabetes self-care reviewed including diet, exercise, footcare, eye care, insulin pump. He does have an appointment coming up with endocrinology, but reporting some issues with recurrent glucose spikes. He is treating these as needed with a subcutaneous injection. Noting some right upper quadrant pain that is worse with eating. Reporting some bilateral flank pain and dysuria. We will check a urinalysis with reflex to urine culture. We have previously ordered bilateral renal ultrasound. Referral made to urology given longstanding proteinuria and diabetes. Patient continues noting some chronic cough. Noting some sputum production. Was treated empirically with azithromycin. Referral to pulmonology for pulmonary function testing. Ultrasound of abdomen to assess abdominal pain. Rocky Ríos MD Physician Billing Established Patient Established Patient: E/M Level 3-CPT 95117 Office Procedures [facility] Level of Care Nursing/Assessment Patient Status: Established Patient Nursing Assessment/Reassessment: Medication Reconciliation, Update PMH in EMR and Vital Signs Coordination of Care: Complex Care and Chronic Disease 1-5, Consent,records obtained, informed consent, Education Simp Pt/Fam and Staff clarify orders Established Patient Charge Established Patient Point Assignment: 85 Established Patient Point Charge: Level 3 (80-115)
== END 2024-08-20 10:01 | disposition home or self-care (01) ==
LOC: HODAHC 09:14
PROVIDERS: Supervising Provider Internal Medicine
DX: R10.11 Right upper quadrant pain (principal); R30.0 Dysuria; J45.909 Unspecified asthma, uncomplicated; E13.65 Other specified diabetes mellitus with hyperglycemia; Z79.4 Long term (current) use of insulin; J44.9 Chronic obstructive pulmonary disease, unspecified; R80.9 Proteinuria, unspecified; Z76.0 Encounter for issue of repeat prescription
CPT/HCPCS: 99213; G0463

== ENCOUNTER → 2024-08-20 | Outpatient (CLI) | payer MEDICARE, SELFPAY ==
[2024-08-20 11:33] LABS: Basophils % (Auto) 0 % (0-2.5); Eosinophils # (Auto) 0.1 Thou/mm3 (0.0-0.5); Eosinophils % (Auto) 2 % (0-10); Hematocrit 46.8 % (41.0-53.0); Hemoglobin 15.6 g/dL (13.5-16.0); Immature Granulocytes % (Auto) 0 % (0-0); Immature Granulocytes Auto 0.02 Thou/mm3 (0.00-0.00); Lymphocytes # (Auto) 2.5 Thou/mm3 (1.0-4.8); Lymphocytes % (Auto) 31 % (10-50); Mean Corpuscular HGB Conc 33.3 g/dl (31.0-37.0); Mean Corpuscular Hemoglobin 29.8 pg (25.0-35.0); Mean Corpuscular Volume 89 fL (80-100); Monocytes # (Auto) 0.5 Thou/mm3 (0.0-0.8); Monocytes % (Auto) 6 % (0-12); Neutrophils # (Auto) 4.9 Thou/mm3 (1.8-7.7); Neutrophils % (Auto) 61 % (37-80); Nucleated Red Blood Cell % 0 /100 WBC (0); Platelet Count 299 Thou/mm3 (140-440); Red Blood Count 5.24 Miln/mm3 (4.50-5.90)
[2024-08-20 11:43] LABS: Glucose Estimated Average 189 mg/dL (80-131); Hemoglobin A1C 8.2 % Hgb (4.8-6.0)
[2024-08-20 11:46] LABS: Creatinine MALB Rnd Ur 69 mg/dL (30-125); Microalbumin, Random Urine < 3 mg/L (0-300)
[2024-08-20 11:47] LABS: Creatinine MALB Rnd Ur 70 mg/dL (30-125); Creatinine,Random Urine 70 mg/dL (30-125); Microalbumin, Random Urine < 3 mg/L (0-300); Protein Total, Random Urine 12 mg/dL (1-14)
[2024-08-20 12:08] LABS: Alanine Aminotransferase 25 U/L (10-49); Albumin, Serum 4.4 gm/dL (3.5-5.0); Albumin/Globulin Ratio 1.9 (1.2-2.2); Alkaline Phosphatase 68 U/L (46-116); Anion Gap 4 (7-16); Aspartate Amino Transferase 21 U/L (0-34); BUN/Creatinine Ratio 20 Ratio (12-20); Bilirubin,Total 0.3 mg/dL (0.3-1.2); Blood Urea Nitrogen 18 mg/dL (9-23); Calcium 9.8 mg/dL (8.3-10.6); Calcium (Corrected) 9.8 mg/dL (8.5-10.1); Carbon Dioxide 27.3 mMol/L (20.0-31.0); Chloride 110 mMol/L (98-107); Creatinine (Component) 0.9 mg/dL (0.6-1.3); Globulin 2.3 gm/dL (2.3-3.5); Lipase 30 U/L (12-53); Osmolality,Calculated 280 (275-295); Potassium 4.5 mMol/L (3.4-5.1); Sodium 141 mMol/L (136-145); Total Protein 6.7 gm/dL (5.7-8.2); eGFR > 60 See Note
[2024-08-20 12:09] LABS: Glucose 49 mg/dL (74-106)
== END | disposition home or self-care (01) ==
DX: R80.9 Proteinuria, unspecified (principal); R10.9 Unspecified abdominal pain
CPT/HCPCS: 36415; 80053; 82043; 82570; 83036; 83690; 84156; 85025

== ENCOUNTER → 2024-11-04 | Outpatient (CLI) | payer MEDICARE, SELFPAY ==
[2024-11-04 08:04] LABS: Misc Send Out* See Sep Rpt
[2024-11-04 09:06] LABS: Basophils # (Auto) 0.0 Thou/mm3 (0.0-0.2); Basophils % (Auto) 1 % (0-2.5); Eosinophils # (Auto) 0.2 Thou/mm3 (0.0-0.5); Eosinophils % (Auto) 3 % (0-10); Hematocrit 41.5 % (41.0-53.0); Hemoglobin 14.2 g/dL (13.5-16.0); Immature Granulocytes Auto 0.02 Thou/mm3 (0.00-0.00); Lymphocytes # (Auto) 1.7 Thou/mm3 (1.0-4.8); Lymphocytes % (Auto) 27 % (10-50); Mean Corpuscular HGB Conc 34.2 g/dl (31.0-37.0); Mean Corpuscular Hemoglobin 29.7 pg (25.0-35.0); Mean Corpuscular Volume 87 fL (80-100); Monocytes # (Auto) 0.4 Thou/mm3 (0.0-0.8); Monocytes % (Auto) 7 % (0-12); Neutrophils # (Auto) 4.1 Thou/mm3 (1.8-7.7); Neutrophils % (Auto) 63 % (37-80); Nucleated Red Blood Cell # 0.00 Thou/mm3 (0.00-0.00); Nucleated Red Blood Cell % 0 /100 WBC (0); Platelet Count 245 Thou/mm3 (140-440); RDW Standard Deviation 42.1 fL (35.1-43.9); Red Blood Count 4.78 Miln/mm3 (4.50-5.90); White Blood Count 6.5 Thou/mm3 (3.8-10.6)
[2024-11-04 09:19] LABS: Alanine Aminotransferase 23 U/L (10-49); Albumin, Serum 4.4 gm/dL (3.5-5.0); Albumin/Globulin Ratio 1.9 (1.2-2.2); Alkaline Phosphatase 68 U/L (46-116); Anion Gap 4 (7-16); Aspartate Amino Transferase 23 U/L (0-34); BUN/Creatinine Ratio 18 Ratio (12-20); Bilirubin,Total 0.3 mg/dL (0.3-1.2); Blood Urea Nitrogen 16 mg/dL (9-23); Calcium 9.2 mg/dL (8.3-10.6); Calcium (Corrected) 9.2 mg/dL (8.5-10.1); Carbon Dioxide 25.1 mMol/L (20.0-31.0); Cardiac Risk Estimate 4.2 RATIO (4.0-6.7); Chloride 113 mMol/L (98-107); Cholesterol 182 mg/dL (132-200); Creatinine (Component) 0.9 mg/dL (0.6-1.3); Globulin 2.3 gm/dL (2.3-3.5); Glucose 140 mg/dL (74-106); HDL Cholesterol 43 mg/dL (40-60); LDL Cholesterol,Calculated 130 mg/dL (0-130); Osmolality,Calculated 286 (275-295); Potassium 4.3 mMol/L (3.4-5.1); Sodium 142 mMol/L (136-145); Total Protein 6.7 gm/dL (5.7-8.2); Triglycerides 46 mg/dL (30-150); eGFR > 60 See Note
[2024-11-04 09:25] LABS: Creatinine MALB Rnd Ur 15 mg/dL (30-125); Microalbumin, Random Urine < 3 mg/L (0-300)
[2024-11-04 09:27] LABS: Glucose Estimated Average 209 mg/dL (80-131); Hemoglobin A1C 8.9 % Hgb (4.8-6.0)
[2024-11-10 06:42] LABS: C-Peptide* 0.30 ng/mL (0.80-3.85)
== END | disposition home or self-care (01) ==
LOC: COPL 07:35
PROVIDERS: PCP Family Medicine; Referring Provider Nurse Practitioner Family; Visit Provider Nurse Practitioner Family
DX: E10.65 Type 1 diabetes mellitus with hyperglycemia (principal)
CPT/HCPCS: 36415; 80053; 80061; 82043; 82570; 83036; 84681; 85025

== ENCOUNTER → 2024-11-17 | Outpatient (CLI) | payer MEDICARE, SELFPAY ==
--- NOTE | 2024-11-17 10:29 | XR_ITS ---
Examination: Abdomen sonogram, Limited Date and time of exam: November 17, 2024 1035 hours INDICATIONS: Epigastric pain beginning 7 months ago, diagnosis diabetes Technique: Real-time martinez scale transabdominal sonographic images of the upper abdomen obtained. Findings: Gallbladder sludge Negative for gallstones, normal gallbladder wall Common bile duct 0.4 cm Pancreatic head 2.1 cm Liver 18.6 cm fatty infiltration, mild free fluid adjacent to the liver Normal hepatopedal portal venous flow Patent IVC IMPRESSION: Negative for cholelithiasis, negative for cholecystitis Gallbladder sludge Normal common bile duct Moderate hepatomegaly fatty infiltration, mild free fluid adjacent to the liver
== END | disposition home or self-care (01) ==
LOC: CDIM 10:18
DX: K82.8 Other specified diseases of gallbladder (principal); K76.0 Fatty (change of) liver, not elsewhere classified
CPT/HCPCS: 76705

== ENCOUNTER 2024-11-21 14:56 | Outpatient (AMB) | payer MEDICARE, SELFPAY ==
[2024-11-21 15:12] VITALS: BP 99/67; PULSE 82; RESP 18; TEMP 36.6; O2SAT 96; BMI 25.0
--- NOTE | 2024-11-21 15:12 | ACNOTE_ITS ---
Vital Signs 11/21/24 15:12 Height 1.83 m Height Method Stated Weight 83.631 kg Weight Measurement Method Standing Scale BMI 25.0 BP 99/67 Blood Pressure Source Automatic Cuff Blood Pressure Location Right Upper Arm Position Sitting Respiration 18 Pulse 82 Pulse Source Monitor Temp 97.8 F Temp Source Temporal Artery Scan Pulse Oximetry (%) 96 Oxygen Delivery Method Room Air Allergies/Meds Allergies & Medications Allergies No Known Allergies Allergy (Verified 11/21/24 15:12) Medication Reconciliation insulin glargine 100 unit/mL (3 mL) subcutaneous pen 25 unit (0.25 mL) subcut QDAY #15 mL 10/18/22 [Rx Confirmed 11/21/24] insulin glargine U-300 conc 300 unit/mL (3 mL) subcutaneous pen (Toujeo Max U- 300 SoloStar) 22 unit (0.0733 mL) subcut QDAY #6 mL 10/31/23 [Rx Confirmed 11/21/24] pen needle, diabetic 31 gauge x 3/16 (Advocate Pen Needle) #100 ea 10/31/23 [Rx Confirmed 11/21/24] fluticasone propionate 115 mcg-salmeterol 21 mcg/actuation HFA inhaler (Advair HFA) 2 puff inhalation BID 30 days #12 grams 05/30/24 [Rx Confirmed 11/21/24] azithromycin 500 mg tablet See Rx Instructions PO .COMPLEX #3 tabs 06/11/24 [Rx Confirmed 11/21/24] insulin lispro 100 unit/mL subcutaneous solution (Humalog U-100 Insulin) 1 sliding scale dose subcut USEASDIRECTD DM #9 vials 06/11/24 [Rx Confirmed 11/21/24] Admelog SoloStar U-100 Insulin 100 unit/mL subcutaneous pen (insulin lispro) See Rx Instructions subcut TID PRN hyperglycemia #15 mL 08/20/24 [Rx Confirmed 11/21/24] blood-glucose sensor (FreeStyle Zoya 2 Plus Sensor device) #1 ea 08/20/24 [Rx Confirmed 11/21/24] empagliflozin 10 mg tablet (Jardiance) 10 mg PO QDAY #30 tabs 08/20/24 [Rx Confirmed 11/21/24] fluticasone 250 mcg-salmeterol 50 mcg/dose blistr powdr for inhalation (Wixela Inhub) 1 inh inhalation BID #60 ea 08/20/24 [Rx Confirmed 11/21/24] infusion set for insulin pump (TruSteel Infusion Set 23 ) #10 ea 08/20/24 [Rx Confirmed 11/21/24] lisinopril 5 mg tablet 5 mg PO QDAY #30 tabs 08/20/24 [Rx Confirmed 11/21/24] albuterol sulfate 90 mcg/actuation aerosol inhaler 2 puff inhalation Q6H PRN shortness of breath or wheezing #8.5 grams 11/21/24 [Rx] MA Intake Visit Data Collection New Patient or Established: Established Patient (seen at [facility] within 3 years) Seen by Clinical Staff ONLY (RN/MA): No Pain Present Currently: No Pain scale:: 0 Pain Scale Used: Tamayo-Onofre/Numerical Cryptographer Required: No PCP or OBGYN visit in last 3 months: No Hx Now: No Do You Feel Safe at Home: Yes Authorities Contacted: N/A Smoking Status Smoking Status: Never smoker Immunization / Flu Flu Vaccine in the Last 12 Months: No Flu Vaccine Exclusion Criteria: No Exclusion Criteria Past Medical History Past Medical History NEUROLOGIC: Negative Neurological Disorders CARDIAC: Negative Cardiac Disorders, Congestive Heart Failure or Hypotension RESPIRATORY: Negative Chronic Obstructive Pulmonary Disease (COPD) GASTROINTESTINAL: Positive Gastrointestinal Disorders and Pancreatitis GENITOURINARY: Negative Genitourinary Disorders or Renal Disease MUSCULOSKELETAL: Positive Arthritis ENDOCRINE: Positive Endocrine Disorders; Negative Diabetes Mellitus Type 1 or Diabetes Mellitus Type 2 HEMATOLOGIC: Negative Blood Disorders OTHER HISTORY: Positive Chicken Pox, Measles and Mumps Surgical History SURGICAL: Negative Cardiac Surgery Social History SMOKING STATUS: Smoking status: Never smoker ALCOHOL: Alcohol Intake: Never HOUSING: Housing: House LIVES WITH: Lives With: Significant Other Patient Portal Questionaires Social History Living Situation History Housing: House Tobacco History Smoking Status: Never smoker Alcohol History Alcohol Intake: Never Domestic Abuse History Do You Feel Safe at Home: Yes Review of Systems Report any current symptoms Only answer those that you have currently: Past Medical History Past Medical History Have you ever been diagnosed with any of the following: Cardiology Problems Congestive Heart Failure: No Hypotension: No Respiratory Problems Chronic Obstructive Pulmonary Disease (COPD): No Stomache/Intestinal Problems Pancreatitis: Yes Genital/Urinary Problems Renal Disease: No Musculoskeletal Problems Arthritis: Yes Endocrine Problems Diabetes Mellitus Type 1: No Diabetes Mellitus Type 2: No Other Problems Chicken Pox: Yes Measles: Yes Mumps: Yes History of Present Illness HPI Narrative 42 year old male with past medical history of eczema, IBS, HLD and DKA. DM management includes Tresiba 20 units QD, metformin 500 mg BID, lispro sliding scale for continued diabetic management.? 01/11/2022 Previous appointment had patient prescribed Lantus for Tresiba due to cost of Tresiba.? Patient has been adequately controlling blood sugars.? Per his freestyle zoya 2 his glucose management has been approximately 157 average with 94% compliance in the ideal blood glucose range.? Discussed with patient he would continue to need to have simple carbohydrate and sugar snacks with him if episodes of hypoglycemia occur when working in hot weather.? Patient stated that he has had some diarrhea/loose stools while on metformin.? Discussed with patient that this would continue to resolve moving forward.? However, have fit and we can consider extended release metformin.? Patient was concerned also for an rash that he had on his lower back extending into his gluteal line.? Patient has history of eczema and patient stated that his triamcinolone cream at home was helping the rash until he ran out.? Patient also wanted to be evaluated at shell molder for multiple ingrown toenails.? Also discussed with patient that he would need to follow-up with podiatry annually now that he has the diagnosis of his diabetes for preventative maintenance and treatment.? Patient has also been able to gain approximately 3 to 4 kg since last appointment. Patient has done an?EXCELLENT?job of lifestyle change for treatment of his diabetes. 02/08/2022 Patient has been having lower blood sugar numbers that drop into the 50s and 60s during the day at work. Patient saw shell molder who recommended he use compression stalkings. Patient had an accident w/ a nail gun that resulted in a 1.25 nail in his most distal phalanx of the left index finger. Continues to have diarrhea on regular metformin, discussed we would try ER. Discussed that patient would have lantus reduced to 25 daily, receive antifungal for gluteal rash, receive TDAP vaccine, receive prescription for metformin ER, receive prescription for Keflex 500 mg qid, refill of freestyle zoya 2 sensors. 03/15/2022 Patient continues to have blood sugar lows when at work. He has been using snacks and high sugar content drinks to keep his blood sugar controlled. Discussed he can begin to reduce his Lantus by 1-2 units and see effect over several days to reduce the number of low sugar incidences. Patient presented with paperwork to sign for an insulin pump. Paperwork was signed and patient wi ll make an additional appointment once he receives the pump. Ordered an a1c for outpatient labs. 05/16/2022 Patient's blood sugar continues to fluctuate at work. Patient has gained approximately 2.0-2.5 kg since last visit. Patient was working to get an insulin pump but due to insurance issues was not able to receive one. He has insurance for medications that started on 05/07/2022. Follow up A1C on 03/15/2022 was 6.0%. Patient would like a prescription for Tresiba as he stated his blood sugar control was more stable throughout the day, especially at work. Continues to have GI upset that waxes/wanes with metformin. 10/20/2022 Patient follow-up. Patient is now status post cardiac angiogram. No large vessel occlusions were seen, no most likely angina is related to microvascular changes. Patient continues to have chest pain during sexual intercourse, and throughout the day when working. Patient has learned to compromise by taking short intermittent breaks. Patient overall has been doing well since last visit. Patient continues to monitor his blood sugar daily for his freestyle libre2. Patient also has had associated nausea without vomiting. Discussed with patient we can treat conservatively or more aggressively with PPIs. Patient at this time wanted to treat conservatively and withhold PPIs. Does not improve we will consider PPI along with imaging. Patient has continued to be cardiac. Patient had labs ordered for CMP, CBC, lipid panel. 12/06/2022 Patient follow-up for recent lab work. CMP wnl, A1C 6.7%, and LDL 120. Patient with improvement of chest pain with activity. Patient able to follow up with Continuity Writer Yvette who recommended to continue current medical management per patient. Patient compliant with diet and exercise, currently using Freestyle Libre2. Upon inspection of Freestyle imtiaz on patient's phone, he is at 0% of the time at <70 blood sugar, 57% at 70-130 blood sugar, and about 14% above 200 blood sugar. Patient did not endorse nausea, fever, chills, chest pain, headache or constipation. He did endorse diarrhea about 5 episodes of water stools daily. Patient with pmh of IBS. Discussed with patient about bene fits of statin therapy in patient with DM and +40yo, however, decision was made to proceed with lifestyle/diet changes and initiate fish oil supplements. Patient willing to recheck his lipid panel in 2-3 months and rediscuss statin therapy at that time. 06/06/2023 Follow up for DM. Patient has been having difficulty with finances. Patient continues to see cardiology for follow up. Has had continued cough for the last several months that has caused some chest pain/discomfort. Has been having diffulcty with controlling blood sugar. Morning readings has been 140 to 180 and also above 300 some mornings. Has had a chronic cough for > 3 months that has caused exessive fatigue. Denies fevers but has had chills at night. 07/11/2023 Follow-up for DM. Patient continues to have minor chest pain on exertion. 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 Continues to have difficulty controlling blood sugar. Cough has improved since last visit with antibiotics. Requests refill of long and short acting insulin. Presented with paperwork for insulin pump. Discussed that we will fill out. Also discussed that we would refer him to endocrinology for continued management of insulin pump. 08/15/2023 Follow-up for DM. Patient was seen over telehealth visit. Patient continues to do well on diabetic medication. Patient was updated on the status of endocrinology referral which is currently pending. Patient mentions no other complaints at this time. Patient did request refill for long and short acting insulin. 09/12/2023 Follow up for DM. Hypoglycemic episodes at night. Resending documentation for insulin pump. Refill medications. Continues to have typical chest pain and takes daily aspirin. Has been maintaining weight with a slight increase since July 2023. Endocrinology referral pending. 10/31/2023 Follow up for DM. Does not currently have CGM as his cell phone is not working. Currently has insulin pump. Filled out paperwork for omnipod. Requested refills. Continues to maintain weight. 02/27/2024 Follow up for DM. Currently on insulin pump. BG well managed with current pump. We ordered new 90 day refills through [facility]. Patient also complaining of dry cough and sob, sometimes wheezing. He has a hx of asthma, currently not taking meds. We ordered inhalers as below. Patient interested in following through with OMNIPOD device. Process was started by Dr. Lopez. We've submited a new form through [facility]. Telehealth Annual and f/u DM. Using insulin pump. Attempt for OMNIPODS was rejected by insurance. Glucose reading have been within range. 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 Now has productive martinez-green sputum, no fever, no chills, no hemoptesis. 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 Will see patient in 1- 2 weeks after her completes labs. 06/11/2024?an office visit Patient seen in the office for follow-up from previous labs. A1c higher than previously documented now 9.0 with average glucose measuring around 212. Patient informs me that he uses long-acting insulin glargine 25 units and sliding scale insulin based on carb counting with episodes of hypoglycemia noted in the morning. He states that he wakes up high and without the use of any corrective insulin his blood sugar drops requiring him to use significant amounts of sugar based beverages and snacks to bring it back to normal. Patient states that he has had increased carbohydrate intake because he is attempting to gain weight due to his thin weight on his tall frame. Patient also states that he is having significant shortness of breath and fatigue [place] He also endorses cough with sputum production that is mostly clear and states that this is a chronic issue for him. He endorses using his rescue inhaler without significant improvement and states that his previously prescribed Advair was too expensive so he is requesting a generic medication. Patient previously did have coronary angiogram around 2 years prior that was noted to be clean. 08/20/2024 In office visit Here for medication refill. He is having difficulty managing his BS with the insulin pump, reports recurrent spikes of sugars during, has an appt with ENDO coming up. Reports 3 months of bilatral flank pain and frothy urine as well as dysuria as well as RUQ pain worse with eating. Asthma controlled with current meds. Denies fever, chills, chest pain, worsening sob, hematuria, n/v/d/c. 11/21/2024 office visit Patient presents to office for follow up with ultrasound results. Patient last time was seen in the office, was complaining of abdominal discomfort mainly located in the right upper quadrant that was worse after eating. Symptoms are associated with constant nausea and multiple episodes of vomiting. Patient stated that despite being on PPI symptoms still present. Ultrasound was done which showed fatty liver, gallbladder sludge, negative for cholecystitis and cholelithiasis. Patient also stated that now he is experiencing severe burning and indigestion symptoms. Due to concern of Helicobacter pylori, urea breath test as well as stool H. pylori antigen test was sent, will follow-up with results. Otherwise patient was referred to GI for further workup including need for HIDA scan, endoscopy, or colonoscopy. Patient does have a family history of colon cancer, mother was diagnosed with colorectal cancer at the age of 40- 50, patient cannot recall exact age, however stated that he he did have a colonoscopy done about a decade ago. Last time when he was seen in the office, he was referred for routine colonoscopy, however was never followed up. Today patient was extensively counseled regarding the need and importance of colonoscopy screening given that family history and the high risk. However patient denies any generalized weakness, night sweats, weight loss, or blood in the stool at this point. Patient was also told that his indigestion symptoms could be related to also with gastroparesis given the longstanding history of diabetes, mainly uncontrolled, A1c is 8.9, is on insulin pump and followed by endocrinology. Patient will continue to follow-up with deposition reporter and further insulin regimen to be decided by specialist, currently the fingerstick within normal limit. Plan for today is to complete H. pylori test, follow-up with the results, refer to GI for further testing including endoscopy as well as might need the HIDA scan. Patient also was referred to pulmonology given the longstanding history of asthma/COPD. Review of Systems Review of Systems Systems Reviewed: All systems reviewed, normal except as documented Objective/Exam Narrative Physical exam: GENERAL * Normal appearing adult male, NAD HEENT * NCAT.?SILKE. Oral mucosa is moist. Patent Nares NECK * Supple, nontender, no thyromegaly, no meningismus, no JVD, no step offs CHEST * RRR, no m/g/r * CTAB, no w/r/r. Symmetrical chest rise. No intercostal subcostal retraction * Atraumatic, nontender, no crepitus, symmetrical expansion. ABDOMEN * Soft, flat, nontender. No guarding/rebound tenderness/masses. * Bowel sounds presents EXTREMITIES * No edema/cyanosis.? SKIN * Warm and dry, no jaundice/rashes. NEUROMUSCULAR * No lumbar or midline, no CVA, no paraspinal muscle spasm or tenderness. * Moves all 4 extremities well, with full ROM and good CSM. * LOPEZ x4, CN II-XII grossly intact. * No focal neurologic deficits. PSYCHIATRY * Normal mood and affect, cooperative, no SI or HI or hallucinations. Assessment & Plan Diagnosis / Problem List (1) Indigestion: Status: Acute Assessment & Plan: Patient is complaining of longstanding indigestion, resistant to PPI treatment, constant nausea, intermittent episodes of vomiting. Last office visit patient was referred to liver ultrasound, which did show fatty liver, gallbladder sludge, negative for cholelithiasis or cholecystitis Plan: 1 urea breath test 2 Helicobacter p.o. every. Allergy contrast 3 referred to GI for possible endoscopy and HIDA scan (2) Abdominal pain: Status: Acute Assessment & Plan: Patient reports dull abdominal pain mainly located in right upper quadrant Plan: Referred to GI Pending H. pylori test Patient is taking PPI (3) Gallbladder sludge: Status: Acute Assessment & Plan: seen on US complaining of colicy pain mainly in RUQ and postprandial Plan: GI follow up HIDDA scan may be considered (4) COPD (chronic obstructive pulmonary disease): Status: Acute Assessment & Plan: Patient does not previously have diagnosed history of COPD Both x-rays appear to have hyperinflated lungs Patient has longstanding history of living in [place] with prolonged periods of commute and high volumes of traffic Denies any previous history of smoking Cannot assess COPD Gold score due to unknown FEV1/FVC ratio COPD assessment test score of 18 Medium health impact with recommendation for LAMA/LABA and rescue inhaler Plan: Continue with rescue inhaler albuterol Pending pulmonology to undergo pulmonary function test (5) Diabetes 1.5, managed as type 1: Status: Acute Assessment & Plan: on insulin pump A1c increased from 7.9-8.9 Plan: Following endocrinology evaluation, JARDIANCE and LISINOPRIL for renal protection (6) Fatty liver: Status: Acute Assessment & Plan: seen on US (7) Encounter for colonoscopy in patient with family history of colon cancer: Status: Acute Assessment & Plan: mother from a Colon CA at age of 40-50 last colonoscopy was decade ago per patient was referred for colonooscopy but never followed Plan: refereed to routine colonoscopy extensivelly counceled the importance of following up and timely colonoscopy Plan counceled diet modification Orders: Orders Helicobacter pylori Ag, Stool* Today Taty Reyes MD K21.9 - Gastro- esophageal reflux disease without esophagitis, K30 - Functional dyspepsia Urea Breath Test Today Alfredo Medina MD K21.9 - Gastro-esophageal reflux disease without esophagitis, K30 - Functional dyspepsia Referrals Pulmonology Taty Reyes MD Gastroenterology Taty Reyes MD Office Procedures [facility] Level of Care Nursing/Assessment Patient Status: Established Patient Nursing Assessment/Reassessment: Medication Reconciliation, Update PMH in EMR and Vital Signs Coordination of Care: Complex Care and Chronic Disease 1-5, Consent,records obtained, informed consent, Education Simp Pt/Fam and Staff clarify orders Established Patient Charge Established Patient Point Assignment: 85 Established Patient Point Charge: Level 3 (80-115)
== END 2024-11-21 15:59 | disposition home or self-care (01) ==
LOC: HODAHC 14:56
DX: K30 Functional dyspepsia (principal); K76.0 Fatty (change of) liver, not elsewhere classified; K82.8 Other specified diseases of gallbladder; R10.11 Right upper quadrant pain; Z80.0 Family history of malignant neoplasm of digestive organs; E13.9 Other specified diabetes mellitus without complications; Z79.4 Long term (current) use of insulin; J44.9 Chronic obstructive pulmonary disease, unspecified
CPT/HCPCS: 99213; G0463

== ENCOUNTER → 2024-11-25 | Outpatient (CLI) | payer MEDICARE, SELFPAY ==
[2024-12-01 06:54] LABS: Helicobacter pylori Ag, Stool* NOT DETECTED (NOT DETECTED)
== END | disposition home or self-care (01) ==
LOC: SLDO 11:51
PROVIDERS: Referring Provider Student in an Organized Health Care Education/Training Program; Visit Provider Student in an Organized Health Care Education/Training Program
DX: K30 Functional dyspepsia (principal); K21.9 Gastro-esophageal reflux disease without esophagitis
CPT/HCPCS: 87338

== ENCOUNTER 2024-12-05 14:46 | Outpatient (AMB) | payer MEDICARE, SELFPAY ==
[2024-12-05 14:59] VITALS: BP 103/74; PULSE 70; RESP 17; TEMP 36.3; O2SAT 95; BMI 25.8
--- NOTE | 2024-12-05 14:59 | ACNOTE_ITS ---
Vital Signs 12/05/24 14:59 Height 1.83 m Height Method Stated Weight 86.636 kg Weight Measurement Method Standing Scale BMI 25.8 BP 103/74 Blood Pressure Source Automatic Cuff Blood Pressure Location Right Upper Arm Position Sitting Respiration 17 Pulse 70 Pulse Source Monitor Temp 97.4 F Temp Source Temporal Artery Scan Pulse Oximetry (%) 95 Oxygen Delivery Method Room Air Allergies/Meds Allergies & Medications Allergies No Known Allergies Allergy (Verified 12/05/24 15:00) Medication Reconciliation insulin glargine 100 unit/mL (3 mL) subcutaneous pen 25 unit (0.25 mL) subcut QDAY #15 mL 10/18/22 [Rx Confirmed 12/05/24] insulin glargine U-300 conc 300 unit/mL (3 mL) subcutaneous pen (Toujeo Max U- 300 SoloStar) 22 unit (0.0733 mL) subcut QDAY #6 mL 10/31/23 [Rx Confirmed 12/05/24] pen needle, diabetic 31 gauge x 3/16 (Advocate Pen Needle) #100 ea 10/31/23 [Rx Confirmed 12/05/24] fluticasone propionate 115 mcg-salmeterol 21 mcg/actuation HFA inhaler (Advair HFA) 2 puff inhalation BID 30 days #12 grams 05/30/24 [Rx Confirmed 12/05/24] azithromycin 500 mg tablet See Rx Instructions PO .COMPLEX #3 tabs 06/11/24 [Rx Confirmed 12/05/24] insulin lispro 100 unit/mL subcutaneous solution (Humalog U-100 Insulin) 1 sliding scale dose subcut USEASDIRECTD DM #9 vials 06/11/24 [Rx Confirmed 12/05/24] Admelog SoloStar U-100 Insulin 100 unit/mL subcutaneous pen (insulin lispro) See Rx Instructions subcut TID PRN hyperglycemia #15 mL 08/20/24 [Rx Confirmed 12/05/24] blood-glucose sensor (FreeStyle Zeyad 2 Plus Sensor device) #1 ea 08/20/24 [Rx Confirmed 12/05/24] empagliflozin 10 mg tablet (Jardiance) 10 mg PO QDAY #30 tabs 08/20/24 [Rx Confirmed 12/05/24] fluticasone 250 mcg-salmeterol 50 mcg/dose blistr powdr for inhalation (Wixela Inhub) 1 inh inhalation BID #60 ea 08/20/24 [Rx Confirmed 12/05/24] infusion set for insulin pump (TruSteel Infusion Set 23 ) #10 ea 08/20/24 [Rx Confirmed 12/05/24] lisinopril 5 mg tablet 5 mg PO QDAY #30 tabs 08/20/24 [Rx Confirmed 12/05/24] albuterol sulfate 90 mcg/actuation aerosol inhaler 2 puff inhalation Q6H PRN shortness of breath or wheezing #8.5 grams 11/21/24 [Rx Confirmed 12/05/24] atorvastatin 10 mg tablet 10 mg PO QHS #30 tabs 12/05/24 [Rx] fluticasone fur. 200 mcg-umeclid 62.5 mcg-vilant 25 mcg inhalat.powder (Trelegy Ellipta) 1 inh inhalation Q24H #60 ea 12/05/24 [Rx] lidocaine 4 % topical patch 1 patch topical QDAY PRN pain #60 ea 12/05/24 [Rx] MA Intake Visit Data Collection New Patient or Established: Established Patient (seen at [facility] within 3 years) Seen by Clinical Staff ONLY (RN/MA): No Reason for Visit:: FOLLOW UP 2 WEEKS Pain Present Currently: Yes Pain Location: Abdomen and Knee Pain scale:: 8 Pain Scale Used: Tamayo-Onofre/Numerical Director Of Orthopedics Required: No PCP or OBGYN visit in last 3 months: Yes Date of Last PCP or OBGYN visit: 11/21/24 Hx Now: No Do You Feel Safe at Home: Yes Authorities Contacted: N/A Smoking Status Smoking Status: Never smoker Immunization / Flu Flu Vaccine in the Last 12 Months: No Flu Vaccine Exclusion Criteria: No Exclusion Criteria Past Medical History Past Medical History NEUROLOGIC: Negative Neurological Disorders CARDIAC: Negative Cardiac Disorders, Congestive Heart Failure or Hypotension RESPIRATORY: Negative Chronic Obstructive Pulmonary Disease (COPD) GASTROINTESTINAL: Positive Gastrointestinal Disorders and Pancreatitis GENITOURINARY: Negative Genitourinary Disorders or Renal Disease MUSCULOSKELETAL: Positive Arthritis ENDOCRINE: Positive Endocrine Disorders; Negative Diabetes Mellitus Type 1 or Diabetes Mellitus Type 2 HEMATOLOGIC: Negative Blood Disorders OTHER HISTORY: Positive Chicken Pox, Measles and Mumps Surgical History SURGICAL: Negative Cardiac Surgery Social History SMOKING STATUS: Smoking status: Never smoker SECOND HAND EXPOSURE: second hand exposure: No ALCOHOL: Alcohol Intake: Never HOUSING: Housing: House LIVES WITH: Lives With: Significant Other Patient Portal Questionaires PHQ-9 PHQ-2 Over the last 2 weeks, how often have you been bothered by any of the following problems? 1. Little interest or pleasure in doing things: not at all 2. Feeling down, depressed, or hopeless: not at all Total score: 0 PHQ-9 3. Trouble falling or staying asleep, or sleeping too much: Not at all 4. Feeling tired or having little energy: Not at all 5. Poor appetite or overeating: Not at all 6. Feeling bad about yourself - or that you are a failure or have let yourself or your family down: Not at all 7. Trouble concentrating on things, such as reading the newspaper or watching television: Not at all 8. Moving or speaking so slowly that other people could have noticed? - Or the opposite - being so fidgety or restless that you have been moving around a lot more than usual: not at all 9. Thoughts that you would be better off or of hurting yourself in some way: Not at all Total score: 0 If you checked off any problems, how difficult have these problems made it for you to do your work, take care of things at home, or get along with other people?: not difficult at all Source: Developed by Drs. Delta Greer, Vanda Serrano, Tom Calvin and colleagues, with an educational jonathan from [employer]. Depression screen completed yes Social History Living Situation History Marital Status: Unknown Lives With: Family Housing: House Tobacco History Smoking Status: Never smoker Second Hand Smoke Exposure: No Alcohol History Alcohol Intake: Never Domestic Abuse History Do You Feel Safe at Home: Yes Review of Systems Report any current symptoms Only answer those that you have currently: Past Medical History Past Medical History Have you ever been diagnosed with any of the following: Cardiology Problems Congestive Heart Failure: No Hypotension: No Respiratory Problems Chronic Obstructive Pulmonary Disease (COPD): No Stomache/Intestinal Problems Pancreatitis: Yes Genital/Urinary Problems Renal Disease: No Musculoskeletal Problems Arthritis: Yes Endocrine Problems Diabetes Mellitus Type 1: No Diabetes Mellitus Type 2: No Other Problems Chicken Pox: Yes Measles: Yes Mumps: Yes History of Present Illness HPI Narrative 42 year old male with past medical history of eczema, IBS, HLD and DKA. DM management includes Tresiba 20 units QD, metformin 500 mg BID, lispro sliding scale for continued diabetic management.? 01/11/2022 Previous appointment had patient prescribed Lantus for Tresiba due to cost of Tresiba.? Patient has been adequately controlling blood sugars.? Per his freestyle zeyad 2 his glucose management has been approximately 157 average with 94% compliance in the ideal blood glucose range.? Discussed with patient he would continue to need to have simple carbohydrate and sugar snacks with him if episodes of hypoglycemia occur when working in hot weather.? Patient stated that he has had some diarrhea/loose stools while on metformin.? Discussed with ivania granados that this would continue to resolve moving forward.? However, have fit and we can consider extended release metformin.? Patient was concerned also for an rash that he had on his lower back extending into his gluteal line.? Patient has history of eczema and patient stated that his triamcinolone cream at home was helping the rash until he ran out.? 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 Also discussed with patient that he would need to follow-up with podiatry annually now that he has the diagnosis of his diabetes for preventative maintenance and treatment.? Patient has also been able to gain approximately 3 to 4 kg since last appointment. Patient has done an?EXCELLENT?job of lifestyle change for treatment of his diabetes. 02/08/2022 Patient has been having lower blood sugar numbers that drop into the 50s and 60s during the day at work. Patient saw cleaner touch up worker who recommended he use compression stalkings. Patient had an accident w/ a nail gun that resulted in a 1.25 nail in his most distal phalanx of the left index finger. Continues to have diarrhea on regular metformin, discussed we would try ER. Discussed that patient would have lantus reduced to 25 daily, receive antifungal for gluteal rash, receive TDAP vaccine, receive prescription for metformin ER, receive prescription for Keflex 500 mg qid, refill of freestyle zeyad 2 sensors. 03/15/2022 Patient continues to have blood sugar lows when at work. He has been using snacks and high sugar content drinks to keep his blood sugar controlled. Discussed he can begin to reduce his Lantus by 1-2 units and see effect over several days to reduce the number of low sugar incidences. Patient presented with paperwork to sign for an insulin pump. Paperwork was signed and patient will make an additional appointment once he receives the pump. Ordered an a1c for outpatient labs. 05/16/2022 Patient's blood sugar continues to fluctuate at work. Patient has gained approximately 2.0-2.5 kg since last visit. Patient was working to get an insulin pump but due to insurance issues was not able to receive one. He has insurance for medications that started on 05/07/2022. Follow up A1C on 03/15/2022 was 6.0%. Patient would like a prescription for Tresiba as he stated his blood sugar control was more stable throughout the day, especially at work. Continues to have GI upset that waxes/wanes with metformin. 10/20/2022 Patient follow-up. Patient is now status post cardiac angiogram. No large vessel occlusions were seen, no most likely angina is related to microvascular changes. Patient continues to have chest pain during sexual intercourse, and throughout the day when working. Patient has learned to compromise by taking short intermittent breaks. Patient overall has been doing well since last visit. Patient continues to monitor his blood sugar daily for his freestyle libre2. Patient also has had associated nausea without vomiting. Discussed with patient we can treat conservatively or more aggressively with PPIs. Patient at this time wanted to treat conservatively and withhold PPIs. Does not improve we will consider PPI along with imaging. Patient has continued to be cardiac. Patient had labs ordered for CMP, CBC, lipid panel. 12/06/2022 Patient follow-up for recent lab work. CMP wnl, A1C 6.7%, and LDL 120. Patient with improvement of chest pain with activity. Patient able to follow up with Clinical Trial Manager Yvette who recommended to continue current medical management per patient. Patient compliant with diet and exercise, currently using Freestyle Libre2. Upon inspection of Freestyle imtiaz on patient's phone, he is at 0% of the time at <70 blood sugar, 57% at 70-130 blood sugar, and about 14% above 200 blood sugar. Patient did not endorse nausea, fever, chills, chest pain, headache or constipation. He did endorse diarrhea about 5 episodes of water stools daily. Patient with pmh of IBS. Discussed with patient about benefits of statin therapy in patient with DM and +40yo, however, decision was made to proceed with lifestyle/diet changes and initiate fish oil supplements. Patient willing to recheck his lipid panel in 2-3 months and rediscuss statin therapy at that time. 06/06/2023 Follow up for DM. Patient has been having difficulty with finances. Patient continues to see cardiology for follow up. Has had continued cough for the last several months that has caused some chest pain/discomfort. Has been having diffulcty with controlling blood sugar. Morning readings has been 140 to 180 and also above 300 some mornings. Has had a chronic cough for > 3 months that has caused exessive fatigue. Denies fevers but has had chills at night. 07/11/2023 Follow-up for DM. Patient continues to have minor chest pain on exertion. 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 Continues to have difficulty controlling blood sugar. Cough has improved since last visit with antibiotics. Requests refill of long and short acting insulin. Presented with paperwork for insulin pump. Discussed that we will fill out. Also discussed that we would refer him to endocrinology for continued management of insulin pump. 08/15/2023 Follow-up for DM. Patient was seen over telehealth visit. Patient continues to do well on diabetic medication. Patient was updated on the status of endocrinology referral which is currently pending. Patient mentions no other complaints at this time. Patient did request refill for long and short acting insulin. 09/12/2023 Follow up for DM. Hypoglycemic episodes at night. Resending documentation for insulin pump. Refill medications. Continues to have typical chest pain and takes daily aspirin. Has been maintaining weight with a slight increase since July 2023. Endocrinology referral pending. 10/31/2023 Follow up for DM. Does not currently have CGM as his cell phone is not working. Currently has insulin pump. Filled out paperwork for omnipod. Requested refills. Continues to maintain weight. 02/27/2024 Follow up for DM. Currently on insulin pump. BG well managed with current pump. We ordered new 90 day refills through [facility]. Patient also complaining of dry cough and sob, sometimes wheezing. He has a hx of asthma, currently not taking meds. We ordered inhalers as below. Patient interested in following through with OMNIPOD device. Process was started by Dr. Lopez. We've submited a new form through [employer]. Telehealth Annual and f/u DM. Using insulin pump. Attempt for OMNIPODS was rejected by insurance. Glucose reading have been within range. 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 Now has productive martinez-green sputum, no fever, no chills, no hemoptesis. 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 Will see patient in 1- 2 weeks after her completes labs. 06/11/2024?an office visit Patient seen in the office for follow-up from previous labs. A1c higher than previously documented now 9.0 with average glucose measuring around 212. Patient informs me that he uses long-acting insulin glargine 25 units and sliding scale insulin based on carb counting with episodes of hypoglycemia noted in the morning. He states that he wakes up high and without the use of any corrective insulin his blood sugar drops requiring him to use significant amounts of sugar based beverages and snacks to bring it back to normal. Patient states that he has had increased carbohydrate intake because he is attempting to gain weight due to his thin weight on his tall frame. Patient also states that he is having significant shortness of breath and fatigue [place] He also endorses cough with sputum production that is mostly clear and states that this is a chronic issue for him. He endorses using his rescue inhaler without significant improvement and states that his previously prescribed Advair was too expensive so he is requesting a generic medication. Patient previously did have coronary angiogram around 2 years prior that was noted to be clean. 08/20/2024 In office visit Here for medication refill. He is having difficulty managing his BS with the insulin pump, reports recurrent spikes of sugars during, has an appt with ENDO coming up. Reports 3 months of bilatral flank pain and frothy urine as well as dysuria as well as RUQ pain worse with eating. Asthma controlled with current meds. Denies fever, chills, chest pain, worsening sob, hematuria, n/v/d/c. 11/21/2024 office visit Patient presents to office for follow up with ultrasound results. Patient last time was seen in the office, was complaining of abdominal discomfort mainly located in the right upper quadrant that was worse after eating. Symptoms are associated with constant nausea and multiple episodes of vomiting. Patient stated that despite being on PPI symptoms still present. Ultrasound was done which showed fatty liver, gallbladder sludge, negative for cholecystitis and cholelithiasis. Patient also stated that now he is experiencing severe burning and indigestion symptoms. Due to concern of Helicobacter pylori, urea breath test as well as stool H. pylori antigen test was sent, will follow-up with results. Otherwise patient was referred to GI for further workup including need for HIDA scan, endoscopy, or colonoscopy. Patient does have a family history of colon cancer, mother was diagnosed with colorectal cancer at the age of 40- 50, patient cannot recall exact age, however stated that he he did have a colonoscopy done about a decade ago. Last time when he was seen in the office, he was referred for routine colonoscopy, however was never followed up. Today patient was extensively counseled regarding the need and importance of colonoscopy screening given that family history and the high risk. However patient denies any generalized weakness, night sweats, weight loss, or blood in the stool at this point. Patient was also told that his indigestion symptoms could be related to also with gastroparesis given the longstanding history of diabetes, mainly uncontrolled, A1c is 8.9, is on insulin pump and followed by endocrinology. Patient will continue to follow-up with foreclosure clerk and further insulin regimen to be decided by specialist, currently the fingerstick within normal limit. Plan for today is to complete H. pylori test, follow-up with the results, refer to GI for further testing including endoscopy as well as might need the HIDA scan. Patient also was referred to pulmonology given the longstanding history of asthma/COPD. 12/05/2024 here for follow-up. Requested refills for INSULIN and Dexcom which were ordered through [employer] [facility]. His INSULIN is managed with INSULIN pump, and range most of the time, however A1c 8.9 from 11/04/2024. Complains of bilateral knee pain, likely arthritic based on exam. Lipid panel relatively within normal limits, however he qualifies for moderate intensity statin with LDL of 130 in settings of diabetes Meds: Started ATORVASTATIN 10 mg HS, LIDOCAINE patches for knee pain, refill INSULIN and ordered Dexcom through [employer] [facility]. Orders: Bilateral knee x-ray, Referrals: Reinstated pulmonology referral to , general surgery referral for abdominal pain and US findings, reinstated GI referral for screening colonoscopy Follow-up: follow-up FOBT Assessment & Plan Diagnosis / Problem List (1) Knee arthropathy: Status: Acute Assessment & Plan: Complains of bilateral knee pain, appears worse early in the morning. No joint swelling or effusion noted on exam. However there was subjective mild pain with passive and active range of motion bilaterally. ? Continue using TYLENOL as needed for pain. ? Prescribed LIDOCAINE patches. ? Ordered bilateral knee x-ray (2) Gallbladder sludge: Status: Acute Assessment & Plan: Continues to have abdominal pain, appears to be related to eating, especially fatty food. Exam showed right upper quadrant tenderness. Ultrasound showed gallbladder sludge, negative for cholelithiasis, cholecystitis, no CBD abnormality. There was moderate hepatomegaly with fatty infiltrate and mild free fluid adjacent to the liver. ? Referral to general surgery for possible cholecystectomy as he remains symp tomatic. ? Avoid fatty food for now. (3) COPD (chronic obstructive pulmonary disease): Status: Acute Assessment & Plan: Symptoms relatively controlled with inhalers however he does report worsening SOB and wheezing over the last few months. No signs or symptoms of CHF exacerbation, no fluid overload, no crackles on exam but bilateral wheezing noted. He was previously referred to pulmonology in [facility] however has been been unable to get an appointment. ? Continue with inhalers ? Referred to pulmonology at [facility] (4) Diabetes 1.5, managed as type 1: Status: Acute Assessment & Plan: Continues using INSULIN pump. Recent A1c 8.9. He qualifies for statin therapy with LDL 130 based on ACC/AHA Cholesterol Guidelines ? Ordered INSULIN refills through [employer]. ? Order Dexcom sensor through [employer] ? Started ATORVASTATIN 10 mg daily (5) Encounter for colonoscopy in patient with family history of colon cancer: Status: Acute Assessment & Plan: ? Refer to GI for screening colonoscopy Orders: Orders XR knee BI 3V 12/05/24 M17.10 - Unilateral primary osteoarthritis, unspecified knee Referrals General surgery K82.8 - Other specified diseases of gallbladder Pulmonology Gastroenterology K21.9 - Gastro-esophageal reflux disease without esophagitis, K82.8 - Other specified diseases of gallbladder, Z12.11 - Encounter for screening for malignant neoplasm of colon, Z80.0 - Family history of malignant neoplasm of digestive organs Office Procedures C Level of Care Nursing/Assessment Patient Status: Established Patient Nursing Assessment/Reassessment: Medication Reconciliation, Update PMH in EMR and Vital Signs Coordination of Care: Complex Care and Chronic Disease 1-5, Consent,records obtained, informed consent, Education Simp Pt/Fam and Staff clarify orders Established Patient Charge Established Patient Point Assignment: 85 Established Patient Point Charge: Level 3 (80-115) TB Screening LTBI Screening: Has patient traveled, was born, or resided for at least 1 month, or frequent border crossing into a country with an elevated TB rate: No Immunosuppression, current or planned (HIV, organ transplant, treated with biologic agents, steroids, or other immunosuppression medication): No Close contact to someone with infectious TB disease during lifetime: No Homelessness or incarceration, current or past: No TB testing indicated at this time (at least 1 yes above): No
== END 2024-12-05 15:43 | disposition home or self-care (01) ==
LOC: HODAHC 14:46
PROVIDERS: Supervising Provider Internal Medicine
DX: M17.10 Unilateral primary osteoarthritis, unspecified knee (principal); K82.8 Other specified diseases of gallbladder; K21.9 Gastro-esophageal reflux disease without esophagitis; Z80.0 Family history of malignant neoplasm of digestive organs; E78.5 Hyperlipidemia, unspecified; E11.9 Type 2 diabetes mellitus without complications; Z79.4 Long term (current) use of insulin; Z79.84 Long term (current) use of oral hypoglycemic drugs
CPT/HCPCS: 99213; G0463

== ENCOUNTER 2025-01-08 13:05 | Outpatient (AMB) | payer MEDICARE, SELFPAY ==
--- NOTE | 2025-01-08 13:15 | GSCOFFNT_ITS ---
Vital Signs - [facility] 01/08/25 13:20 Height 1.83 m Height Method Measured Weight 85.899 kg Weight Measurement Method Standing Scale BMI 25.6 BP 115/75 Blood Pressure Source Automatic Cuff Blood Pressure Location Left Upper Arm Position Sitting Respiration 18 Pulse 78 Pulse Source Monitor Temp 98.0 F Temp Source Temporal Artery Scan Pulse Oximetry (%) 94 L Oxygen Delivery Method Room Air Med/Allergies Allergies & Medications Allergies No Known Allergies Allergy (Verified 01/08/25 13:21) Medication Reconciliation insulin glargine 100 unit/mL (3 mL) subcutaneous pen 25 unit (0.25 mL) subcut QDAY #15 mL 10/18/22 [Rx Confirmed 01/08/25] insulin glargine U-300 conc 300 unit/mL (3 mL) subcutaneous pen (Toujeo Max U- 300 SoloStar) 22 unit (0.0733 mL) subcut QDAY #6 mL 10/31/23 [Rx Confirmed 01/08/25] pen needle, diabetic 31 gauge x 3/16 (Advocate Pen Needle) #100 ea 10/31/23 [Rx Confirmed 01/08/25] fluticasone propionate 115 mcg-salmeterol 21 mcg/actuation HFA inhaler (Advair HFA) 2 puff inhalation BID 30 days #12 grams 05/30/24 [Rx Confirmed 01/08/25] azithromycin 500 mg tablet See Rx Instructions PO .COMPLEX #3 tabs 06/11/24 [Rx Confirmed 01/08/25] insulin lispro 100 unit/mL subcutaneous solution (Humalog U-100 Insulin) 1 sliding scale dose subcut USEASDIRECTD DM #9 vials 06/11/24 [Rx Confirmed 01/08/25] Admelog SoloStar U-100 Insulin 100 unit/mL subcutaneous pen (insulin lispro) See Rx Instructions subcut TID PRN hyperglycemia #15 mL 08/20/24 [Rx Confirmed 01/08/25] blood-glucose sensor (FreeStyle Zeyad 2 Plus Sensor device) #1 ea 08/20/24 [Rx Confirmed 01/08/25] empagliflozin 10 mg tablet (Jardiance) 10 mg PO QDAY #30 tabs 08/20/24 [Rx Confirmed 01/08/25] fluticasone 250 mcg-salmeterol 50 mcg/dose blistr powdr for inhalation (Wixela Inhub) 1 inh inhalation BID #60 ea 08/20/24 [Rx Confirmed 01/08/25] infusion set for insulin pump (TruSteel Infusion Set 23 ) #10 ea 08/20/24 [Rx Confirmed 01/08/25] lisinopril 5 mg tablet 5 mg PO QDAY #30 tabs 08/20/24 [Rx Confirmed 01/08/25] albuterol sulfate 90 mcg/actuation aerosol inhaler 2 puff inhalation Q6H PRN shortness of breath or wheezing #8.5 grams 11/21/24 [Rx Confirmed 01/08/25] atorvastatin 10 mg tablet 10 mg PO QHS #30 tabs 12/05/24 [Rx Confirmed 01/08/25] fluticasone fur. 200 mcg-umeclid 62.5 mcg-vilant 25 mcg inhalat.powder (Trelegy Ellipta) 1 inh inhalation Q24H #60 ea 12/05/24 [Rx Confirmed 01/08/25] lidocaine 4 % topical patch 1 patch topical QDAY PRN pain #60 ea 12/05/24 [Rx Confirmed 01/08/25] MA Intake Visit Data Collection New Patient or Established: Established Patient (seen at [facility] within 3 years) Seen by Clinical Staff ONLY (RN/MA): No Reason for Visit:: REFERRAL GALLSTONES Pain Present Currently: Yes Pain Location: Abdomen Pain scale:: 7 Pain Scale Used: Tamayo-Onofre/Numerical Hand Twister Required: No PCP or OBGYN visit in last 3 months: Yes Hx Now: No Do You Feel Safe at Home: Yes Authorities Contacted: N/A Smoking Status Smoking Status: Never smoker Immunization / Flu Flu Vaccine in the Last 12 Months: No Flu Vaccine Exclusion Criteria: Refused by Patient Past Medical History Past Medical History NEUROLOGIC: Negative Neurological Disorders CARDIAC: Negative Cardiac Disorders, Congestive Heart Failure or Hypotension RESPIRATORY: Negative Chronic Obstructive Pulmonary Disease (COPD) GASTROINTESTINAL: Positive Gastrointestinal Disorders and Pancreatitis GENITOURINARY: Negative Genitourinary Disorders or Renal Disease MUSCULOSKELETAL: Positive Arthritis ENDOCRINE: Positive Endocrine Disorders; Negative Diabetes Mellitus Type 1 or Diabetes Mellitus Type 2 HEMATOLOGIC: Negative Blood Disorders OTHER HISTORY: Positive Chicken Pox, Measles and Mumps Family History OTHER FAMILY HX: Pt denies any family history. Surgical History SURGICAL: Negative Cardiac Surgery OTHER SURGICAL HX: Other surgical history: PT denies surgical history. Social History SMOKING STATUS: Smoking status: Never smoker SECOND HAND EXPOSURE: second hand exposure: No ALCOHOL: Alcohol Intake: Never HOUSING: Housing: House LIVES WITH: Lives With: Significant Other Past Medical History Comments PMH COMMENT: Diabetes, heart attack, and autoimmune disease. PMHx has been reviewed and verified. HPI HPI Narrative 44 y/o male with a past MHx of T1DM presents with a c/c of RUQ and epigastric pain that radiates to the back, and worsens after eating. Pt describes is as a constant, cramping 9/10 pain that is currently a 5/10 pain. As per pt, this has happened before, directly after being diagnosed with T1DM. He reports of nausea, vomiting, and diarrhea. Pt consumes a healthy and well balanced diet, consuming minimal carbohydrates only in the evenings. Pt denies smoking tobacco products and denies the consumption of alcohol. Pt reports using Tums and NSAIDs for the pain, with no relief. PMH: DM type 1, last A1c in November was 8.9 but pt recently saw an speed runner; COPD (not on home O2) and CAD PSHx: Remote cardiac stent (not currently established with a maintenance worker municipal) Meds: No antiplt or anticoagulation Allergies: NKDA ROS Review of Systems Narrative Review of Systems: ROS is otherwise normal with the exception of the following. Pt reports palpitations, bilateral upper extremity edema, nausea, vomiting, and diarrhea. Pt also reports of numness and tingling in his bilaeral upper extremities. Pt denies headaches, SOB, cough, and wheezing, jaundice, pallor, or skin erythema. Objective/Exam Other Other exam information: General: well mannered, well dressed, conversational man. Skin: no jaundice, pallor, nor erythemia. GI: Soft, non-distened abdomen, nontender Cardio: +1 edema in bilateral upper extremities, all 4 peripheral pulses intact, normal capilary refil . Neuro: sensation intact in bilateral upper extremities Assessment & Plan Diagnosis / Problem List (1) Gallbladder sludge: Status: Acute Assessment & Plan: 44 M with DM1, COPD and CAD presents with a c/c of RUQ and epigastric pain that radiates to his back with findings of gallbladder sludge on US. Recommend checking in with PCP for an updated HbA1C, maintenance worker municipal to review heart health, and tobacco drying machine operator to review lung health prior to possible removal of gallbladder. I did explain benefits/risks of surgery including need for conversion to open, bleeding, infection, injury to nearby structures requiring further procedures including potential biliary reconstruction which would require transfer to another hospital, as well as postoperative diarrhea and hernia. All questions were answered and pt is agreeable to following up Plan: F/u repeat A1c Appreciate pulmonary and cardiology recs (pt was given info for nearby providers he can contact as he does not require referral with Medicare) Will follow up after these evaluations to schedule lap luis Orders: Orders Ambulatory Hemoglobin A1C Today K82.8 - Other specified diseases of gallbladder Office Procedures GNS Level of Care Nursing/Assessment Patient Status: Established Patient Nursing Assessment/Reassesment: Medication Reconciliation, Update PMH in EMR and Vital Signs Coordination of Care: Complex Care and Chronic Disease 1-5, Consent,records obtained, informed consent, Education Simp Pt/Fam, Lab and Imaging orders, Results/Orders obtained and Staff clarify orders Established Patient Charge Established Patient Point Assignment: 105 Established Patient Point Charge: EP Level 3 (80-115) Patient Portal Questionaires Social History Living Situation History Lives With: Family Housing: House Tobacco History Smoking Status: Never smoker Second Hand Smoke Exposure: No Alcohol History Alcohol Intake: Never Domestic Abuse History Do You Feel Safe at Home: Yes Review of Systems Report any current symptoms Only answer those that you have currently: Past Medical History Past Medical History Have you ever been diagnosed with any of the following: Cardiology Problems Congestive Heart Failure: No Hypotension: No Respiratory Problems Chronic Obstructive Pulmonary Disease (COPD): No Stomache/Intestinal Problems Pancreatitis: Yes Genital/Urinary Problems Renal Disease: No Musculoskeletal Problems Arthritis: Yes Endocrine Problems Diabetes Mellitus Type 1: No Diabetes Mellitus Type 2: No Other Problems Chicken Pox: Yes Measles: Yes Mumps: Yes
[2025-01-08 13:20] VITALS: BP 115/75; PULSE 78; RESP 18; TEMP 36.7; O2SAT 94; BMI 25.6
== END 2025-01-08 14:41 | disposition home or self-care (01) ==
PROVIDERS: Supervising Provider Surgery; Visit Provider Surgery
DX: K82.8 Other specified diseases of gallbladder (principal); E10.9 Type 1 diabetes mellitus without complications; J44.9 Chronic obstructive pulmonary disease, unspecified; I25.10 Atherosclerotic heart disease of native coronary artery without angina pectoris
CPT/HCPCS: 99213; G0463

== ENCOUNTER → 2025-02-03 | Outpatient (CLI) | payer MEDICARE, SELFPAY ==
[2025-02-03 14:24] LABS: Free T4 (Free Thyroxine) 1.32 ng/dL (0.89-1.76); Thyroid Stimulating Hormone 0.52 uIU/mL (0.55-4.78)
[2025-02-03 14:27] LABS: Follicle Stimulating Hormone 10.98 mIU/mL (See Note); Vitamin D 25 Hydroxy Total 45.6 ng/mL (7.3-40.2)
[2025-02-12 06:40] LABS: Luteinizing Hormone* 7.0 mIU/mL (1.5-9.3); Sex Hormone Binding Globulin* 72 nmol/L (10-50); T3,Total* 102 ng/dL (76-181); Testosterone, Free,Dialysis 69.4 pg/mL (35.0-155.0); Testosterone, Total, Dialysis 796 ng/dL (250-1100)
== END | disposition home or self-care (01) ==
LOC: COPL 12:49
PROVIDERS: PCP Student in an Organized Health Care Education/Training Program; Referring Provider Nurse Practitioner Family; Visit Provider Nurse Practitioner Family
DX: E55.9 Vitamin D deficiency, unspecified (principal); R53.83 Other fatigue
CPT/HCPCS: 36415; 82306; 83001; 83002; 84270; 84402; 84403; 84439; 84443; 84480

== ENCOUNTER 2025-03-13 13:05 | Outpatient (AMB) | payer MEDICARE, SELFPAY ==
[2025-03-13 13:15] VITALS: BP 120/74; PULSE 72; RESP 19; TEMP 36.6; O2SAT 97; BMI 25.2
--- NOTE | 2025-03-13 13:15 | ACNOTE_ITS ---
Vital Signs 03/13/25 13:15 Height 1.83 m Height Method Stated Weight 84.538 kg Weight Measurement Method Standing Scale BMI 25.2 BP 120/74 Blood Pressure Source Automatic Cuff Blood Pressure Location Right Upper Arm Position Sitting Respiration 19 Pulse 72 Pulse Source Monitor Temp 97.8 F Temp Source Temporal Artery Scan Pulse Oximetry (%) 97 Oxygen Delivery Method Room Air Allergies/Meds Allergies & Medications Allergies No Known Allergies Allergy (Verified 03/13/25 13:18) Medication Reconciliation insulin glargine 100 unit/mL (3 mL) subcutaneous pen 25 unit (0.25 mL) subcut QDAY #15 mL 10/18/22 [Rx Confirmed 03/13/25] insulin glargine U-300 conc 300 unit/mL (3 mL) subcutaneous pen (Toujeo Max U- 300 SoloStar) 22 unit (0.0733 mL) subcut QDAY #6 mL 10/31/23 [Rx Confirmed 03/13/25] pen needle, diabetic 31 gauge x 3/16 (Advocate Pen Needle) #100 ea 10/31/23 [Rx Confirmed 03/13/25] fluticasone propionate 115 mcg-salmeterol 21 mcg/actuation HFA inhaler (Advair HFA) 2 puff inhalation BID 30 days #12 grams 05/30/24 [Rx Confirmed 03/13/25] azithromycin 500 mg tablet See Rx Instructions PO .COMPLEX #3 tabs 06/11/24 [Rx Confirmed 03/13/25] insulin lispro 100 unit/mL subcutaneous solution (Humalog U-100 Insulin) 1 sliding scale dose subcut USEASDIRECTD DM #9 vials 06/11/24 [Rx Confirmed 03/13/25] Admelog SoloStar U-100 Insulin 100 unit/mL subcutaneous pen (insulin lispro) See Rx Instructions subcut TID PRN hyperglycemia #15 mL 08/20/24 [Rx Confirmed 03/13/25] blood-glucose sensor (FreeStyle Zeyad 2 Plus Sensor device) #1 ea 08/20/24 [Rx Confirmed 03/13/25] empagliflozin 10 mg tablet (Jardiance) 10 mg PO QDAY #30 tabs 08/20/24 [Rx Confirmed 03/13/25] fluticasone 250 mcg-salmeterol 50 mcg/dose blistr powdr for inhalation (Wixela Inhub) 1 inh inhalation BID #60 ea 08/20/24 [Rx Confirmed 03/13/25] infusion set for insulin pump (TruSteel Infusion Set 23 ) #10 ea 08/20/24 [Rx Confirmed 03/13/25] lisinopril 5 mg tablet 5 mg PO QDAY #30 tabs 08/20/24 [Rx Confirmed 03/13/25] albuterol sulfate 90 mcg/actuation aerosol inhaler 2 puff inhalation Q6H PRN shortness of breath or wheezing #8.5 grams 11/21/24 [Rx Confirmed 03/13/25] atorvastatin 10 mg tablet 10 mg PO QHS #30 tabs 12/05/24 [Rx Confirmed 03/13/25] fluticasone fur. 200 mcg-umeclid 62.5 mcg-vilant 25 mcg inhalat.powder (Trelegy Ellipta) 1 inh inhalation Q24H #60 ea 12/05/24 [Rx Confirmed 03/13/25] lidocaine 4 % topical patch 1 patch topical QDAY PRN pain #60 ea 12/05/24 [Rx Confirmed 03/13/25] hydrocodone 5 mg-acetaminophen 325 mg tablet 1 tab PO TID PRN pain #20 tabs 03/13/25 [Rx] MA Intake Visit Data Collection New Patient or Established: Established Patient (seen at [facility] within 3 years) Seen by Clinical Staff ONLY (RN/MA): No Pain Present Currently: Yes Pain Location: Abdomen Pain scale:: 8 Pain Scale Used: Tamayo-Onofre[employer] Receptionist Required: No PCP or OBGYN visit in last 3 months: Yes Do You Feel Safe at Home: Yes Authorities Contacted: N/A Smoking Status Smoking Status: Never smoker Immunization / Flu Flu Vaccine in the Last 12 Months: No Flu Vaccine Exclusion Criteria: No Exclusion Criteria Past Medical History Past Medical History NEUROLOGIC: Negative Neurological Disorders CARDIAC: Negative Cardiac Disorders, Congestive Heart Failure or Hypotension RESPIRATORY: Negative Chronic Obstructive Pulmonary Disease (COPD) GASTROINTESTINAL: Positive Gastrointestinal Disorders and Pancreatitis GENITOURINARY: Negative Genitourinary Disorders or Renal Disease MUSCULOSKELETAL: Positive Arthritis ENDOCRINE: Positive Endocrine Disorders; Negative Diabetes Mellitus Type 1 or Diabetes Mellitus Type 2 HEMATOLOGIC: Negative Blood Disorders OTHER HISTORY: Positive Chicken Pox, Measles and Mumps Surgical History SURGICAL: Negative Cardiac Surgery Social History SMOKING STATUS: Smoking status: Never smoker SECOND HAND EXPOSURE: second hand exposure: No ALCOHOL: Alcohol Intake: Never HOUSING: Housing: House LIVES WITH: Lives With: Significant Other Patient Portal Questionaires PHQ-9 PHQ-2 Over the last 2 weeks, how often have you been bothered by any of the following problems? 1. Little interest or pleasure in doing things: not at all PHQ-9 8. Moving or speaking so slowly that other people could have noticed? - Or the opposite - being so fidgety or restless that you have been moving around a lot more than usual: not at all Source: Developed by Drs. Delta Greer, Vanda Serrano, Tom Calvin and colleagues, with an educational jonathan from [employer]. Social History Living Situation History Lives With: Family Housing: House Tobacco History Smoking Status: Never smoker Second Hand Smoke Exposure: No Alcohol History Alcohol Intake: Never Domestic Abuse History Do You Feel Safe at Home: Yes Review of Systems Report any current symptoms Only answer those that you have currently: Past Medical History Past Medical History Have you ever been diagnosed with any of the following: Cardiology Problems Congestive Heart Failure: No Hypotension: No Respiratory Problems Chronic Obstructive Pulmonary Disease (COPD): No Stomache/Intestinal Problems Pancreatitis: Yes Genital/Urinary Problems Renal Disease: No Musculoskeletal Problems Arthritis: Yes Endocrine Problems Diabetes Mellitus Type 1: No Diabetes Mellitus Type 2: No Other Problems Chicken Pox: Yes Measles: Yes Mumps: Yes History of Present Illness HPI Narrative 42 year old male with past medical history of eczema, IBS, HLD and DKA. DM management includes Tresiba 20 units QD, metformin 500 mg BID, lispro sliding scale for continued diabetic management.? 01/11/2022 Previous appointment had patient prescribed Lantus for Tresiba due to cost of Tresiba.? Patient has been adequately controlling blood sugars.? Per his freestyle zeyad 2 his glucose management has been approximately 157 average with 94% compliance in the ideal blood glucose range.? Discussed with patient he would continue to need to have simple carbohydrate and sugar snacks with him if episodes of hypoglycemia occur when working in hot weather.? Patient stated that he has had some diarrhea/loose stools while on metformin.? Discussed with patient that this would continue to resolve moving forward.? However, have fit and we can consider extended release metformin.? Patient was concerned also for an rash that he had on his lower back extending into his gluteal line.? Patient has history of eczema and patient stated that his triamcinolone cream at home was helping the rash until he ran out.? Patient also wanted to be evaluated at manager registration for multiple ingrown toenails.? Also discussed with patient that he would need to follow-up with podiatry annually now that he has the diagnosis of his diabetes for preventative maintenance and treatment.? Patient has also been able to gain approximately 3 to 4 kg since last appointment. Patient has done an?EXCELLENT?job of lifestyle change for treatment of his diabetes. 02/08/2022 Patient has been having lower blood sugar numbers that drop into the 50s and 60s during the day at work. Patient saw manager registration who recommended he use compression stalkings. Patient had an accident w/ a nail gun that resulted in a 1.25 nail in his most distal phalanx of the left index finger. Continues to have diarrhea on regular metformin, discussed we would try ER. Discussed that patient would have lantus reduced to 25 daily, receive antifungal for gluteal rash, receive TDAP vaccine, receive prescription for metformin ER, receive prescription for Keflex 500 mg qid, refill of Rapid RMSstyle zeyad 2 sensors. 03/15/2022 Patient continues to have blood sugar lows when at work. He has been using snacks and high sugar content drinks to keep his blood sugar controlled. Discussed he can begin to reduce his Lantus by 1-2 units and see effect over several days to reduce the number of low sugar incidences. Patient presented with paperwork to sign for an insulin pump. Paperwork was signed and patient will make an additional appointment once he receives the pump. Ordered an a1c for outpatient labs. 05/16/2022 Patient's blood sugar continues to fluctuate at work. Patient has gained approximately 2.0-2.5 kg since last visit. Patient was working to get an insulin pump but due to insurance issues was not able to receive one. He has insurance for medications that started on 05/07/2022. Follow up A1C on 03/15/2022 was 6.0%. Patient would like a prescription for Tresiba as he stated his blood sugar control was more stable throughout the day, especially at work. Continues to have GI upset that waxes/wanes with metformin. 10/20/2022 Patient follow-up. Patient is now status post cardiac angiogram. No large vessel occlusions were seen, no most likely angina is related to microvascular changes. Patient continues to have chest pain during sexual intercourse, and throughout the day when working. Patient has learned to compromise by taking short intermittent breaks. Patient overall has been doing well since last visit. Patient continues to monitor his blood sugar daily for his freestyle libre2. Patient also has had associated nausea without vomiting. Discussed with patient we can treat conservatively or more aggressively with PPIs. Patient at this time wanted to treat conservatively and withhold PPIs. Does not improve we will consider PPI along with imaging. Patient has continued to be cardiac. Patient had labs ordered for CMP, CBC, lipid panel. 12/06/2022 Patient follow-up for recent lab work. CMP wnl, A1C 6.7%, and LDL 120. Patient with improvement of chest pain with activity. Patient able to follow up with Security Investigator Yvette who recommended to continue current medical management per patient. Patient compliant with diet and exercise, currently using Freestyle Libre2. Upon inspection of [email or web address] imtiaz on patient's phone, he is at 0% of the time at <70 blood sugar, 57% at 70-130 blood sugar, and about 14% above 200 blood sugar. Patient did not endorse nausea, fever, chills, chest pain, headache or constipation. He did endorse diarrhea about 5 episodes of water stools daily. Patient with pmh of IBS. Discussed with patient about benefits of statin therapy in patient with DM and +40yo, however, decision was made to proceed with lifestyle/diet changes and initiate fish oil supplements. Patient willing to recheck his lipid panel in 2-3 months and rediscuss statin therapy at that time. 06/06/2023 Follow up for DM. Patient has been having difficulty with finances. Patient con tinues to see cardiology for follow up. Has had continued cough for the last several months that has caused some chest pain/discomfort. Has been having diffulcty with controlling blood sugar. Morning readings has been 140 to 180 and also above 300 some mornings. Has had a chronic cough for > 3 months that has caused exessive fatigue. Denies fevers but has had chills at night. 07/11/2023 Follow-up for DM. Patient continues to have minor chest pain on exertion. 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 Continues to have difficulty controlling blood sugar. Cough has improved since last visit with antibiotics. Requests refill of long and short acting insulin. Presented with paperwork for insulin pump. Discussed that we will fill out. Also discussed that we would refer him to endocrinology for continued management of insulin pump. 08/15/2023 Follow-up for DM. Patient was seen over telehealth visit. Patient continues to do well on diabetic medication. Patient was updated on the status of endocrinology referral which is currently pending. Patient mentions no other complaints at this time. Patient did request refill for long and short acting insulin. 09/12/2023 Follow up for DM. Hypoglycemic episodes at night. Resending documentation for insulin pump. Refill medications. Continues to have typical chest pain and takes daily aspirin. Has been maintaining weight with a slight increase since July 2023. Endocrinology referral pending. 10/31/2023 Follow up for DM. Does not currently have CGM as his cell phone is not working. Currently has insulin pump. Filled out paperwork for omnipod. Requested refills. Continues to maintain weight. 02/27/2024 Follow up for DM. Currently on insulin pump. BG well managed with current pump. We ordered new 90 day refills through [facility]. Patient also complaining of dry cough and sob, sometimes wheezing. He has a hx of asthma, currently not taking meds. We ordered inhalers as below. Patient interested in following through with OMNIPOD device. Process was started by Dr. Lopez. We've submited a new form through [employer]. Telehealth Annual and f/u DM. Using insulin pump. Attempt for OMNIPODS was rejected by insurance. Glucose reading have been within range. Has been unable to berry picker his asthma inhalers (we switched pharmacy to [facility]), complaining of daily cough that worsening over the last month or so. Now has productive martinez-green sputum, no fever, no chills, no hemoptesis. 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 Will see patient in 1- 2 weeks after her completes labs. 06/11/2024?an office visit Patient seen in the office for follow-up from previous labs. A1c higher than previously documented now 9.0 with average glucose measuring around 212. Patient informs me that he uses long-acting insulin glargine 25 units and sliding scale insulin based on carb counting with episodes of hypoglycemia noted in the morning. He states that he wakes up high and without the use of any corrective insulin his blood sugar drops requiring him to use significant amounts of sugar based beverages and snacks to bring it back to normal. Patient states that he has had increased carbohydrate intake because he is attempting to gain weight due to his thin weight on his tall frame. Patient also states that he is having significant shortness of breath and fatigue [place] He also endorses cough with sputum production that is mostly clear and states that this is a chronic issue for him. He endorses using his rescue inhaler without significant improvement and states that his previously prescribed Advair was too expensive so he is requesting a generic medication. Patient previously did have coronary angiogram around 2 years prior that was noted to be clean. 08/20/2024 In office visit Here for medication refill. He is having difficulty managing his BS with the insulin pump, reports recurrent spikes of sugars during, has an appt with ENDO coming up. Reports 3 months of bilatral flank pain and frothy urine as well as dysuria as well as RUQ pain worse with eating. Asthma controlled with current meds. Denies fever, chills, chest pain, worsening sob, hematuria, n/v/d/c. 11/21/2024 office visit Patient presents to office for follow up with ultrasound results. Patient last time was seen in the office, was complaining of abdominal discomfort mainly located in the right upper quadrant that was worse after eating. Symptoms are associated with constant nausea and multiple episodes of vomiting. Patient stated that despite being on PPI symptoms still present. Ultrasound was done which showed fatty liver, gallbladder sludge, negative for cholecystitis and cholelithiasis. Patient also stated that now he is experiencing severe burning and indigestion symptoms. Due to concern of Helicobacter pylori, urea breath test as well as stool H. pylori antigen test was sent, will follow-up with results. Otherwise patient was referred to GI for further workup including need for HIDA scan, endoscopy, or colonoscopy. Patient does have a family history of colon cancer, mother was diagnosed with colorectal cancer at the age of 40- 50, patient cannot recall exact age, however stated that he he did have a co lonoscopy done about a decade ago. Last time when he was seen in the office, he was referred for routine colonoscopy, however was never followed up. Today patient was extensively counseled regarding the need and importance of colonoscopy screening given that family history and the high risk. However patient denies any generalized weakness, night sweats, weight loss, or blood in the stool at this point. Patient was also told that his indigestion symptoms could be related to also with gastroparesis given the longstanding history of diabetes, mainly uncontrolled, A1c is 8.9, is on insulin pump and followed by endocrinology. Patient will continue to follow-up with operator and further insulin regimen to be decided by specialist, currently the fingerstick within normal limit. Plan for today is to complete H. pylori test, follow-up with the results, refer to GI for further testing including endoscopy as well as might need the HIDA scan. Patient also was referred to pulmonology given the longstanding history of asthma/COPD. 12/05/2024 here for follow-up. Requested refills for INSULIN and Dexcom which were ordered through [email or web address]iaz. His INSULIN is managed with INSULIN pump, and range most of the time, however A1c 8.9 from 11/04/2024. Complains of bilateral knee pain, likely arthritic based on exam. Lipid panel relatively within normal limits, however he qualifies for moderate intensity statin with LDL of 130 in settings of diabetes 03/13/25. Patient is here for abdominal pain that is going on for beginning of this year. He complains of right upper quadrant and epigastric abdominal pain which is radiating to the back associated with meals intake and nausea vomiting. He states that he has been taking ibuprofen, Tylenol but they are not helping much. Ultrasound gallbladder in November shows GB sludge. He has been working up with Dr. Celeste for the elective gallbladder surgery. Has he had extensive COPD he is currently awaiting for shoe treer appointment. He got clearance from the cardiology point of view for the surgery. He denies any fever, burning micturition, diarrhea. For his type 1 diabetes he is controlling well with his home insulin. Review of Systems Review of Systems Systems Reviewed: All systems reviewed, normal except as documented Objective/Exam Narrative Physical exam: GENERAL: NAD, AAOx3 HEENT: Moist mucosa. Eyes open, symmetrical, & clear CARDIO: Regular rhythm Noted. No Murmurs. PULM: No noted coughing/dyspnea CTA B/L, no R/W/R GI: Abdomen soft, nondistended, Tenderness on palpation of RUQ. SKIN/MSK/EXT: No wounds/rashes/amputations, no pain on palpation.No Edema. Pedal pulses present B/L NEURO: AAOx3, no focal neuro deficits, able to move all 4 extremities Assessment & Plan Diagnosis / Problem List (1) COPD (chronic obstructive pulmonary disease): Status: Acute Assessment & Plan: He complains his coughing sputum which is similar to his baseline. He denies any fever, shortness of breath, any sputum purulence Plan: Continue his home medication inhaler. (2) Gall bladder disease: Status: Acute Assessment & Plan: Gall Bladder Sludge: Has been experiencing pain in the right upper quadrant and epigastric region which is not relieving on Tylenol and ibuprofen. He has been working up with Dr. Queen for elective cholecystectomy He has been cleared from cardiology point of view and is waiting for to see shoe treer for clearance because of his extensive COPD Plan: Ordered Ventura 5?325 as required for his pain. Made a referral to Dr. Rivera for his clearance for his surgery. Advised him to return to the ED in case if his symptoms worsens (3) Type 1 diabetes: Status: Acute Assessment & Plan: He is well-controlled with his home insulin regimen. His blood sugar is in the range of 120-180 Plan: Continue to use Home Insulin Regimen (4) Knee arthropathy: Status: Acute Assessment & Plan: He has been doing well in regard to knee and is able to do work. Plan: ?Recommended Tylenol as required for his knee pain. Orders: Referrals Pulmonology J44.9 - Chronic obstructive pulmonary disease, unspecified Office Procedures [facility] Level of Care Nursing/Assessment Patient Status: Established Patient Nursing Assessment/Reassessment: Medication Reconciliation, Update PMH in EMR and Vital Signs Coordination of Care: Complex Care and Chronic Disease 1-5, Complex Care/Chronic Disease 5 or more, Consent,records obtained, informed consent, Lab and Imaging orders, Results/Orders obtained and Staff clarify orders Established Patient Charge Established Patient Point Assignment: 125 Established Patient Point Charge: Level 4 (120-155)
== END 2025-03-13 14:33 | disposition home or self-care (01) ==
LOC: HODAHC 13:05
PROVIDERS: Supervising Provider Internal Medicine
DX: J44.9 Chronic obstructive pulmonary disease, unspecified (principal); K82.8 Other specified diseases of gallbladder; R10.11 Right upper quadrant pain; R10.13 Epigastric pain; E10.9 Type 1 diabetes mellitus without complications; Z79.4 Long term (current) use of insulin; M12.869 Other specific arthropathies, not elsewhere classified, unspecified knee
CPT/HCPCS: 99214; G0463